=== PATIENT | male | born 1945 | race Two or more races ===

== ENCOUNTER 2018-09-02 02:48 | Emergency (ER) | payer OTHER ==
[~2018-09-02] VITALS: Ht 182.9 cm; Wt 88.5 kg
[2018-09-02 02:54] VITALS: BP 182/92
[2018-09-02] MEDS ORDERED: cloNIDine HCL 0.1 MG TAB ONE (03:04)
[2018-09-02] MEDS ORDERED: cloNIDine HCL 0.1 MG TAB PO ONE (03:15)
[2018-09-02 03:36] LABS: Basophils # (auto) 0 uL; Basophils % (auto) 0.2 % (0.0-2.0); Eosinophils # (auto) 0.5 uL; Eosinophils % (auto) 6.6 % (0.0-7.0); Hematocrit 39.8 % (41.0-53.0); Hemoglobin 13.6 g/dL (13.5-17.5); Lymphocytes # (auto) 2.3 uL; Lymphocytes % (auto) 33.6 % (10.0-50.0); Mean Corpuscular Hemoglobin 32.2 pg (28.0-32.0); Mean Corpuscular Hgb Conc. 34.1 g/dL (32.0-36.0); Mean Corpuscular Volume 94.4 fL (80.0-100.0); Monocytes # (auto) 0.5 uL; Neutrophils # (auto) 3.7 uL; Neutrophils % (auto) 52.6 % (37.0-80.0); Nucleated Red Blood Cells % 0.1 %; Platelet Count (auto) 269 10^3/uL (140-450); Red Blood Cells 4.22 10^6/uL (4.5-5.90); Red Cell Distribution Width 12.8 % (11.8-14.3)
[2018-09-02 03:55] LABS: Albumin 3.5 g/dL (3.4-5.0); Anion Gap 7 (5-15); Blood Urea Nitrogen 27 mg/dL (7-18); Calcium 8.4 mg/dL (8.5-10.1); Carbon Dioxide 23 mmol/L (21-32); Chloride 109 mmol/L (98-107); Glucose 106 mg/dL (74-106); Potassium 4.1 mmol/L (3.5-5.1); Sodium 139 mmol/L (136-145)
[2018-09-02 04:01] LABS: Alanine Aminotransferase 22 U/L (16-61); Alkaline Phosphatase 77 U/L (45-117); Aspartate Aminotransferase 17 U/L (15-37); BUN/Creatinine Ratio 22.3; Bilirubin, Total 0.2 mg/dL (0.2-1.0); GFR African American 76 mL/min; GFR Non-African American 62 mL/min; Total Protein 6.9 g/dL (6.4-8.2)
[2018-09-05] MEDS ORDERED: IBUP400T21 PO (08:58)
[2018-09-05] MEDS ORDERED: ATOR40TA52 PO (08:58)
[2018-09-05] MEDS ORDERED: HYDR-392 PO (08:58)
[2018-09-05] MEDS ORDERED: LISI-646 PO (08:58)
[2018-09-05] MEDS ORDERED: OME20GT PO (08:58)
[2018-09-05] MEDS ORDERED: CHOL20007 PO (08:58)
[2018-09-05] MEDS ORDERED: MULTCAP45 PO (08:59)
[2018-09-05] MEDS ORDERED: LUTE6TAB PO (08:59)
[2018-09-05] MEDS ORDERED: FERR27TA2 PO (08:59)
== END 2018-09-02 04:57 | disposition left against medical advice (07) ==
LOC: ER 02:48
DX: R07.89 Other chest pain (principal); M54.9 Dorsalgia, unspecified; R11.0 Nausea; Z53.21 Procedure and treatment not carried out due to patient leaving prior to being seen by health care provider
CPT/HCPCS: 36415; 71045; 71250; 74176; 80053; 83735; 84443; 84484; 85025; 93005

== ENCOUNTER 2018-09-04 17:49 | Inpatient (IN) | payer OTHER | END 2018-09-08 19:00 | disposition home or self-care (01) | LOC: TELE 09-05 02:56 → ER 17:49 → TELE-WESTW 09-05 21:28 | DX: R07.9 Chest pain, unspecified (principal) ==

== ENCOUNTER → 2018-10-05 | Outpatient (CLI) | payer OTHER ==
[~2018-10-05] MED LIST: ATOR40TA52 PO; HYDR-392 PO; IBUP400T21 PO; LISI-646 PO; OME20GT PO
== END | disposition home or self-care (01) ==
LOC: LAB 11:10
PROVIDERS: ATTEND Urology
DX: C61 Malignant neoplasm of prostate (principal); C67.9 Malignant neoplasm of bladder, unspecified; N40.0 Benign prostatic hyperplasia without lower urinary tract symptoms
CPT/HCPCS: 84153; 87086

== ENCOUNTER 2018-10-27 08:42 | Day surgery (SDC) | payer OTHER ==
[2018-10-24 09:18] LABS: Basophils # (auto) 0.1 uL; Eosinophils # (auto) 0.2 uL; Eosinophils % (auto) 2.9 % (0.0-7.0); Hematocrit 41.7 % (41.0-53.0); Hemoglobin 13.9 g/dL (13.5-17.5); Mean Corpuscular Hemoglobin 31.6 pg (28.0-32.0); Mean Corpuscular Hgb Conc. 33.2 g/dL (32.0-36.0); Monocytes # (auto) 0.5 uL; Monocytes % (auto) 7.4 % (0.0-12.0); Neutrophils % (auto) 58.7 % (37.0-80.0); Nucleated Red Blood Cells % 0.1 %; Platelet Count (auto) 299 10^3/uL (140-450); Red Blood Cells 4.39 10^6/uL (4.5-5.90); Red Cell Distribution Width 13.7 % (11.8-14.3); White Blood Cell 6.8 10^3/uL (4.4-10.8)
[2018-10-24 09:49] LABS: Albumin 3.8 g/dL (3.4-5.0); Calcium 8.7 mg/dL (8.5-10.1); Potassium 4.4 mmol/L (3.5-5.1)
[2018-10-24 09:52] LABS: BUN/Creatinine Ratio 12.7; Bilirubin, Total 0.6 mg/dL (0.2-1.0); Total Protein 7.4 g/dL (6.4-8.2)
[2018-10-24 10:11] LABS: INR 1.22 (0.9-1.15); Partial Thromboplastin Time 33.2 sec (23.78-33.04); Prothrombin Time 12.2 sec (9.27-12.13)
[~2018-10-27] VITALS: Ht 182.9 cm; Wt 86.2 kg
[~2018-10-27 08:42] MED LIST changes: +AMIO200T33 PO; +CLOP75TA41 PO; +DOCU100T15 PO; -IBUP400T21 PO; +LIDOCAINE VISCOUS 2% 15ML UD MT ONE; +MIDAZOLAM HCL 1MG/1ML-2 ML VIAL IV ONE; +RIV15T PO; +fentaNYL CITRATE 100 MCG/2 ML VL IV ONE
== END 2018-10-27 11:40 | disposition home or self-care (01) ==
LOC: CATH 08:42
PROVIDERS: ATTEND Internal Medicine
DX: I08.1 Rheumatic disorders of both mitral and tricuspid valves (principal); I48.91 Unspecified atrial fibrillation; I10 Essential (primary) hypertension; E78.5 Hyperlipidemia, unspecified; K21.9 Gastro-esophageal reflux disease without esophagitis; G89.29 Other chronic pain; Z79.01 Long term (current) use of anticoagulants; Z79.899 Other long term (current) drug therapy; Z85.46 Personal history of malignant neoplasm of prostate; Z91.048 Other nonmedicinal substance allergy status; Z87.891 Personal history of nicotine dependence; Z82.49 Family history of ischemic heart disease and other diseases of the circulatory system
CPT/HCPCS: 36415; 80053; 85025; 85610; 85730; 92960; 93005; 93312; J2250; J3010; J7030; 99152; 99153

== ENCOUNTER → 2018-11-09 | Outpatient (CLI) | payer OTHER ==
[~2018-11-09] MED LIST changes: -LIDOCAINE VISCOUS 2% 15ML UD MT ONE; -MIDAZOLAM HCL 1MG/1ML-2 ML VIAL IV ONE; -fentaNYL CITRATE 100 MCG/2 ML VL IV ONE
== END | disposition home or self-care (01) ==
LOC: LAB 13:34
PROVIDERS: ATTEND Urology
DX: C61 Malignant neoplasm of prostate (principal); C67.9 Malignant neoplasm of bladder, unspecified
CPT/HCPCS: 88108

== ENCOUNTER → 2019-02-19 | Outpatient (CLI) | payer OTHER ==
[2019-02-19 08:43] LABS: Basophils # (auto) 0.1 uL; Basophils % (auto) 1.2 % (0.0-2.0); Eosinophils # (auto) 0.1 uL; Eosinophils % (auto) 2.1 % (0.0-7.0); Hemoglobin 13.5 g/dL (13.5-17.5); Lymphocytes # (auto) 1.4 uL; Lymphocytes % (auto) 22.6 % (10.0-50.0); Mean Corpuscular Hemoglobin 31.8 pg (28.0-32.0); Mean Corpuscular Hgb Conc. 32.9 g/dL (32.0-36.0); Mean Corpuscular Volume 96.6 fL (80.0-100.0); Monocytes # (auto) 0.4 uL; Monocytes % (auto) 6.8 % (0.0-12.0); Neutrophils # (auto) 4.3 uL; Neutrophils % (auto) 67.3 % (37.0-80.0); Nucleated Red Blood Cells % 0.1 %; Platelet Count (auto) 288 10^3/uL (140-450); Red Blood Cells 4.24 10^6/uL (4.5-5.90); Red Cell Distribution Width 13.2 % (11.8-14.3); White Blood Cell 6.4 10^3/uL (4.4-10.8)
[2019-02-19 09:08] LABS: Albumin 3.6 g/dL (3.4-5.0); Calcium 9.1 mg/dL (8.5-10.1); Potassium 4.2 mmol/L (3.5-5.1)
[2019-02-19 09:13] LABS: BUN/Creatinine Ratio 17.1; Bilirubin, Total 0.4 mg/dL (0.2-1.0); Total Protein 7.3 g/dL (6.4-8.2)
== END | disposition home or self-care (01) ==
LOC: LAB 08:21
PROVIDERS: ATTEND Internal Medicine
DX: I48.0 Paroxysmal atrial fibrillation (principal); E78.49 Other hyperlipidemia; I10 Essential (primary) hypertension
CPT/HCPCS: 36415; 80053; 80061; 85025

== ENCOUNTER → 2019-04-11 | Outpatient (CLI) | payer OTHER ==
[~2019-04-11] VITALS: Ht 182.9 cm; Wt 86.2 kg
[~2019-04-11] MED LIST changes: +ADENOSINE 72 MG in GIVE UN-DILUTED 0 ML IV STA
== END | disposition home or self-care (01) ==
LOC: XY 08:57
PROVIDERS: ATTEND Internal Medicine
DX: R07.9 Chest pain, unspecified (principal); I49.3 Ventricular premature depolarization; I48.91 Unspecified atrial fibrillation; I71.4 Abdominal aortic aneurysm, without rupture; Z86.79 Personal history of other diseases of the circulatory system; Z95.5 Presence of coronary angioplasty implant and graft
CPT/HCPCS: 78452; 93017; A9500; J0153

== ENCOUNTER → 2019-04-19 | Outpatient (CLI) | payer OTHER ==
[~2019-04-19] MED LIST changes: -ADENOSINE 72 MG in GIVE UN-DILUTED 0 ML IV STA
== END | disposition home or self-care (01) ==
LOC: XYW 09:34
PROVIDERS: ATTEND Internal Medicine
DX: I07.1 Rheumatic tricuspid insufficiency (principal); I49.3 Ventricular premature depolarization
CPT/HCPCS: 93306

== ENCOUNTER → 2019-06-04 | Outpatient (CLI) | payer OTHER ==
[~2019-06-04] MED LIST changes: +OME20T PO
[2019-06-04 13:04] LABS: Basophils # (auto) 0.1 uL; Basophils % (auto) 0.9 % (0.0-2.0); Eosinophils # (auto) 0.1 uL; Eosinophils % (auto) 2.2 % (0.0-7.0); Hematocrit 39.3 % (41.0-53.0); Hemoglobin 13.2 g/dL (13.5-17.5); Lymphocytes # (auto) 1.6 uL; Lymphocytes % (auto) 23.6 % (10.0-50.0); Mean Corpuscular Hemoglobin 32.4 pg (28.0-32.0); Mean Corpuscular Hgb Conc. 33.6 g/dL (32.0-36.0); Mean Corpuscular Volume 96.3 fL (80.0-100.0); Monocytes # (auto) 0.5 uL; Monocytes % (auto) 6.9 % (0.0-12.0); Neutrophils # (auto) 4.4 uL; Neutrophils % (auto) 66.4 % (37.0-80.0); Nucleated Red Blood Cells % 0.1 %; Platelet Count (auto) 283 10^3/uL (140-450); Red Blood Cells 4.08 10^6/uL (4.5-5.90); Red Cell Distribution Width 12.6 % (11.8-14.3); White Blood Cell 6.6 10^3/uL (4.4-10.8)
[2019-06-04 13:28] LABS: Albumin 3.8 g/dL (3.4-5.0); Calcium 8.5 mg/dL (8.5-10.1); Potassium 4.4 mmol/L (3.5-5.1)
[2019-06-04 13:31] LABS: BUN/Creatinine Ratio 13.7; Bilirubin, Total 0.3 mg/dL (0.2-1.0); Total Protein 7.6 g/dL (6.4-8.2)
[2019-06-04 14:39] LABS: INR 1.24 (0.9-1.15); Partial Thromboplastin Time 32.2 sec (23.64-32.05)
== END | disposition home or self-care (01) ==
LOC: LAB 12:46
PROVIDERS: ATTEND Internal Medicine
DX: Z01.812 Encounter for preprocedural laboratory examination (principal); R07.89 Other chest pain
CPT/HCPCS: 36415; 80053; 85025; 85610; 85730

== ENCOUNTER 2019-06-06 08:01 | Day surgery (SDC) | payer OTHER ==
[~2019-06-06] VITALS: Ht 182.9 cm; Wt 88.5 kg
[~2019-06-06 08:01] MED LIST changes: +IODIXANOL 320MG/ML 100ML BTL IV ONE; +LIDOCAINE 2%HCL (LOCAL ANESTH.) INJ 20ML MDV ONE; -OME20T PO
[2019-06-06] MEDS ORDERED: MIDAZOLAM HCL 1MG/1ML-2 ML VIAL ONE (09:04)
[2019-06-06] MEDS ORDERED: ANGIOMAX 250 MG VIAL IV ONE (09:04)
[2019-06-06] MEDS ORDERED: SODIUM CHL 0.9% 50 ML ONE (09:04)
[2019-06-06] MEDS ORDERED: fentaNYL CITRATE 100 MCG/2 ML VL ONE (09:04)
[2019-06-06] MEDS ORDERED: IODIXANOL 320MG/ML 100ML BTL IV ONE (09:16)
[2019-06-06] MEDS ORDERED: HEPARIN SODIUM (PORCINE) 5000 UNITS/ML 1ML VIAL ONE (09:17)
[2019-06-06] MEDS ORDERED: VERAPAMIL 2.5MG/ML INJ 2ML VIAL IV ONE (09:17)
[2019-06-06] MEDS ORDERED: ATROPINE SULF 1 MG/10ml SYR ONE (09:56)
[2019-06-06] MEDS ORDERED: SODIUM CHLORIDE 0.9% 1,000 ML IV SCH (10:23)
[2019-06-06] MEDS ORDERED: OME20T PO (10:28)
[2019-06-06] MEDS ORDERED: ONDANSETRON HCL 4 MG/2 ML VIAL IV PRN (10:30)
[2019-06-06] MEDS ORDERED: HYDROcodone-ACET 7.5/325MG TAB PO PRN (10:30)
[2019-06-06] MEDS ORDERED: MORPHINE SULF INJ 2 MG/ML SYRINGE 1ML IV PRN (10:30)
[2019-06-06] MEDS ORDERED: NITROGLYCERIN 0.4 MG SL TAB SL PRN (10:30)
[2019-06-06] MEDS ORDERED: ACETAMINOPHEN 500 MG TAB PO PRN (10:30)
[2019-06-06] MEDS ORDERED: PATIENTS OWN MEDICATION (Docusate Sodium 100 MG) PO PRN (10:30)
[2019-06-06] MEDS ORDERED: DOCUSATE SOD 100 MG CAP PO PRN (10:45)
[2019-06-06] MEDS ORDERED: SODIUM CHLOR 0.9% PF (SALINE LOCK) 10ML VIAL/SYR IV SCH (14:00)
[2019-06-06] MEDS ORDERED: ATORVASTATIN 20 MG TAB PO SCH (22:00)
[2019-06-06] MEDS ORDERED: AMIODARONE HCL 200 MG TAB PO SCH (22:00)
[2019-06-07] MEDS ORDERED: RIVAROXABAN 15 MG TAB PO SCH (10:00)
[2019-06-07] MEDS ORDERED: CLOPIDOGREL BISULFATE 75 MG TAB PO SCH (10:00)
[2019-06-07] MEDS ORDERED: OMEPRAZOLE 20MG/10ML ORAL SUSP PO SCH (10:00)
[2019-06-07] MEDS ORDERED: LISINOPRIL 20 MG TAB PO SCH (10:00)
[2019-06-07] MEDS ORDERED: PATIENTS OWN MEDICATION (Atorvastatin Calcium 1 TAB) PO SCH (10:00)
== END 2019-06-06 14:15 | disposition home or self-care (01) ==
LOC: CATH 08:01
PROVIDERS: ATTEND Internal Medicine
DX: I25.10 Atherosclerotic heart disease of native coronary artery without angina pectoris (principal); I10 Essential (primary) hypertension; E78.5 Hyperlipidemia, unspecified; I48.91 Unspecified atrial fibrillation; Z95.5 Presence of coronary angioplasty implant and graft; Z91.040 Latex allergy status; Z87.891 Personal history of nicotine dependence; Z85.46 Personal history of malignant neoplasm of prostate; Z79.899 Other long term (current) drug therapy
CPT/HCPCS: 93458; 93571; C1725; C1769; C1874; C1887; C1894; C9600; J0583; J1644; J2250; J3010; J7030; Q9967; 99152; 99153

== ENCOUNTER → 2019-12-11 | Outpatient (CLI) | payer OTHER ==
[~2019-12-11] MED LIST changes: +HYDR-4833 PO; -IODIXANOL 320MG/ML 100ML BTL IV ONE; -LIDOCAINE 2%HCL (LOCAL ANESTH.) INJ 20ML MDV ONE; -OME20GT PO; +OME20T PO; +PANT1INJ3 PO; +SUCR1TAB PO
== END | disposition home or self-care (01) ==
LOC: LAB 10:42
PROVIDERS: ATTEND Urology
DX: C61 Malignant neoplasm of prostate (principal); C67.9 Malignant neoplasm of bladder, unspecified; N40.1 Benign prostatic hyperplasia with lower urinary tract symptoms; R33.9 Retention of urine, unspecified
CPT/HCPCS: 84153

== ENCOUNTER → 2019-12-17 | Outpatient (CLI) | payer OTHER ==
[~2019-12-17] MED LIST changes: -HYDR-4833 PO; -PANT1INJ3 PO; -SUCR1TAB PO
== END | disposition home or self-care (01) ==
LOC: LAB 15:00
PROVIDERS: ATTEND Urology
DX: N32.89 Other specified disorders of bladder (principal); Z85.51 Personal history of malignant neoplasm of bladder

== ENCOUNTER → 2020-02-06 | Outpatient (CLI) | payer OTHER | END | disposition home or self-care (01) | LOC: LAB 11:01 | PROVIDERS: ATTEND Internal Medicine Cardiovascular Disease | DX: R94.4 Abnormal results of kidney function studies (principal) | CPT/HCPCS: 36415; 82565 ==

== ENCOUNTER → 2020-02-08 | Outpatient (CLI) | payer OTHER ==
[~2020-02-08] MED LIST changes: +HYDR-4833 PO; +IOHEXOL 350 MG/ML 100ML IJ ONE; +PANT1INJ3 PO; +SODIUM CHLORIDE 0.9% 500 ML IV ONE; +SUCR1TAB PO
[2020-02-08 08:40] VITALS: BP 109/56
--- NOTE | 2020-02-08 08:40 | NUR ---
CLINIC PT ARRIVED TO THE CHF CLINIC FOR CTA ABD/PEL WITH ORDERS FOR IV HYDRATION PRIOR TO CT. A/OX4, AMBULATORY. BREATHING IS EVEN AND UNLABORED.
--- NOTE | 2020-02-08 08:52 | NUR ---
NS STARTED @ 250ML/HR PER MD ORDERS.
--- NOTE | 2020-02-08 09:22 | NUR ---
IV insertion IV access obtained, via clean sterile technique by inserting 20 gauge catheter at RFA after 1 attempt(s). IV secured properly. No trauma to site. Patient tolerated procedure well. LABS DRAWN AND SENT. NOTE INSERTED BY DELONTE GONZALES Addendum: 02/08/20 at 0924 by THOMAS ZHANG RN RN PA IV INSERTED AT 0849
--- NOTE | 2020-02-08 10:25 | NUR ---
TO CT WITH [employer], A/OX4, AMBULATORY
--- NOTE | 2020-02-08 10:35 | NUR ---
RETURN FROM CT A/OX4, AMBULATORY. RESTARTED TO NS PER MD ORDERS
--- NOTE | 2020-02-08 12:17 | NUR ---
IV removal IV DC'd with sterile technique, catheter fully intact. Pressure dressing applied to site. Patient tolerated procedure well. Discharged with aftercare instructions per MD. NOTE: REMOVED BY DELONTE GONZALES
[2020-02-08 12:19] VITALS: BP 136/66
--- NOTE | 2020-02-08 12:19 | NUR ---
Discharge Instructions See e-MAR for any mediations given with this visit. Patient education given on disease process. Patient verbalized understanding. Previous labs reviewed. Patient discharged in stable condition with after care instructions and follow up appointment. PT ADVISED TO INCREASE WATER INTAKE FOR THE NEXT 24 HOURS. NOTE NS IV [id number] ADMIN BY THOMAS GONZALES
[2020-02-08 12:20] VITALS: BP 109/56
== END | disposition home or self-care (01) ==
LOC: Rad HDHVI 08:29
PROVIDERS: ATTEND Internal Medicine Cardiovascular Disease
DX: E86.0 Dehydration (principal); R94.4 Abnormal results of kidney function studies; I25.10 Atherosclerotic heart disease of native coronary artery without angina pectoris; I10 Essential (primary) hypertension; E78.5 Hyperlipidemia, unspecified
CPT/HCPCS: 36415; 74175; 82565; 96360; 96361; G0463; J7040; Q9967; 96366

== ENCOUNTER → 2020-02-20 | Outpatient (CLI) | payer OTHER ==
[~2020-02-20] MED LIST changes: -HYDR-4833 PO; -IOHEXOL 350 MG/ML 100ML IJ ONE; -PANT1INJ3 PO; -SODIUM CHLORIDE 0.9% 500 ML IV ONE; -SUCR1TAB PO
[2020-02-20 10:34] LABS: Basophils # (auto) 0.1 10 ^3/uL (0-0.2); Basophils % (auto) 0.9 % (0.0-2.0); Eosinophils # (auto) 0.2 10 ^3/uL (0-0.8); Eosinophils % (auto) 2.5 % (0.0-7.0); Hematocrit 38.3 % (41.0-53.0); Hemoglobin 12.8 g/dL (13.5-17.5); Lymphocytes # (auto) 1.4 10 ^3/uL (0.4-5.4); Lymphocytes % (auto) 21.6 % (10.0-50.0); Mean Corpuscular Hemoglobin 32.1 pg (28.0-32.0); Mean Corpuscular Hgb Conc. 33.6 g/dL (32.0-36.0); Mean Corpuscular Volume 95.5 fL (80.0-100.0); Monocytes # (auto) 0.5 10 ^3/uL (0-1.3); Monocytes % (auto) 7.8 % (0.0-12.0); Neutrophils # (auto) 4.3 10 ^3/uL (1.6-8.6); Neutrophils % (auto) 67.2 % (37.0-80.0); Nucleated Red Blood Cells % 0.2 %; Platelet Count (auto) 317 10^3/uL (140-450); Red Blood Cells 4.01 10^6/uL (4.5-5.90); Red Cell Distribution Width 13.5 % (11.8-14.3); White Blood Cell 6.4 10^3/uL (4.4-10.8)
[2020-02-20 10:51] LABS: Albumin 3.5 g/dL (3.4-5.0); Potassium 4.4 mmol/L (3.5-5.1)
[2020-02-20 10:58] LABS: BUN/Creatinine Ratio 16.1; Bilirubin, Total 0.4 mg/dL (0.2-1.0); Calcium 8.8 mg/dL (8.5-10.1); Total Protein 7.1 g/dL (6.4-8.2)
== END | disposition home or self-care (01) ==
LOC: LAB 09:46
PROVIDERS: ATTEND Family Medicine
DX: I10 Essential (primary) hypertension (principal); I25.10 Atherosclerotic heart disease of native coronary artery without angina pectoris; E78.5 Hyperlipidemia, unspecified
CPT/HCPCS: 36415; 80053; 80061; 85025

== ENCOUNTER → 2020-03-06 | Outpatient (CLI) | payer OTHER ==
[~2020-03-06] MED LIST changes: +HYDR-4833 PO; +PANT1INJ3 PO; +SUCR1TAB PO
[2020-03-06 11:15] VITALS: BP 91/47
--- NOTE | 2020-03-06 11:15 | NUR ---
CLINIC PT ARRIVED TO THE CHF CLINIC FOR EKG ONLY FOR PRE OP FOR AAA WITH MD SIDHU. A/OX4, AMBULATORY, BREATHING IS EVEN AND UNLABORED.
--- NOTE | 2020-03-06 11:23 | NUR ---
EKG DONE BY KAI SOLIZ REVIEWED BY THOMAS GONZALES SR 50
[2020-03-06 11:35] VITALS: BP 95/55
--- NOTE | 2020-03-06 11:35 | NUR ---
Pre-Op Discharge Summary: See e-MAR for any medications given for this visit. Pre-op orders received and carried out per MD of EKG. Patient given a copy of EKG with instructions [facility] for further follow up care. PT GIVEN A PRESCRIPTION FOR LABS AND CXR TO BE DONE AT HOSPITAL. NOTE EKG DONE BY KAI SOLIZ
== END | disposition home or self-care (01) ==
LOC: CHF HDHVI 11:04
PROVIDERS: ATTEND Internal Medicine Cardiovascular Disease
DX: Z01.818 Encounter for other preprocedural examination (principal); I71.4 Abdominal aortic aneurysm, without rupture
CPT/HCPCS: 93005; G0463

== ENCOUNTER 2020-03-13 08:34 | Inpatient (IN) | payer OTHER ==
[2020-03-11 09:29] LABS: Basophils # (auto) 0.1 10 ^3/uL (0-0.2); Basophils % (auto) 0.8 % (0.0-2.0); Eosinophils # (auto) 0.1 10 ^3/uL (0-0.8); Eosinophils % (auto) 1.6 % (0.0-7.0); Hematocrit 36.5 % (41.0-53.0); Hemoglobin 12.4 g/dL (13.5-17.5); Lymphocytes # (auto) 1.4 10 ^3/uL (0.4-5.4); Lymphocytes % (auto) 19.5 % (10.0-50.0); Mean Corpuscular Hemoglobin 32.3 pg (28.0-32.0); Mean Corpuscular Volume 94.9 fL (80.0-100.0); Monocytes # (auto) 0.4 10 ^3/uL (0-1.3); Monocytes % (auto) 6.1 % (0.0-12.0); Neutrophils # (auto) 5.2 10 ^3/uL (1.6-8.6); Platelet Count (auto) 238 10^3/uL (140-450); Red Blood Cells 3.85 10^6/uL (4.5-5.90); Red Cell Distribution Width 13.4 % (11.8-14.3); White Blood Cell 7.3 10^3/uL (4.4-10.8)
[2020-03-11 09:49] LABS: BUN/Creatinine Ratio 12.2; Calcium 8.4 mg/dL (8.5-10.1); INR 1.01 (0.9-1.15); Partial Thromboplastin Time 26.4 sec (23.0-31.2)
[~2020-03-13] VITALS: Ht 182.9 cm; Wt 46.9 kg
[~2020-03-13 08:34] MED LIST changes: -HYDR-392 PO; -OME20T PO
[2020-03-13] MEDS ORDERED: LIDOCAINE 2%HCL (LOCAL ANESTH.) INJ 20ML MDV ONE ×2 (09:12→09:57)
[2020-03-13] MEDS ORDERED: DOPamine 1600MCG/ML D5W 0 ML IV ONE (09:45)
[2020-03-13] MEDS ORDERED: ANGIOMAX 250 MG VIAL IV ONE ×2 (09:45→11:04)
[2020-03-13] MEDS ORDERED: fentaNYL CITRATE 100 MCG/2 ML VL ONE ×2 (09:45→09:57)
[2020-03-13] MEDS ORDERED: SODIUM CHL 0.9% 0 ML ONE (09:45)
[2020-03-13] MEDS ORDERED: ATROPINE SULF 1 MG/10ml SYR ONE (09:45)
[2020-03-13] MEDS ORDERED: MIDAZOLAM HCL 1MG/1ML-2 ML VIAL ONE ×4 (09:45→11:28)
[2020-03-13] MEDS ORDERED: EPINEPHrine HCL 1 MG/10 ML SYRG ONE (09:47)
[2020-03-13] MEDS ORDERED: PHENYLEPHRINE HCL 10 MG/ML VL ONE (09:56)
[2020-03-13] MEDS ORDERED: IOHEXOL 350 MG/ML 100ML IJ ONE ×2 (09:59→10:46)
[2020-03-13] MEDS ORDERED: SODIUM CHL 0.9% 50 ML ONE (11:05)
[2020-03-13] MEDS ORDERED: NITROGLYCERIN 0.4 MG SL TAB SL PRN (12:15)
[2020-03-13] MEDS ORDERED: ACETAMINOPHEN 500 MG TAB PO PRN (12:15)
[2020-03-13] MEDS ORDERED: MORPHINE SULF INJ 2 MG/ML SYRINGE 1ML IV PRN (12:15)
[2020-03-13] MEDS: HYDROmorphone HCL 2 MG/ML VL IV PRN ×2 (12:28→16:34)
[2020-03-13] MEDS ORDERED: DOCUSATE SOD 100 MG CAP PO PRN (12:30)
[2020-03-13 15:23] VITALS: BP 164/70
[2020-03-13] MEDS ORDERED: cloNIDine HCL 0.1 MG TAB PO PRN (15:30)
[2020-03-13] MEDS: SUCRALFATE 1 GM TAB PO SCH ×2 (17:18→23:54)
[2020-03-13] MEDS: HYDROcodone-ACET 5/325MG TAB PO PRN (18:01)
[2020-03-13 22:00] VITALS: BP 88/45
[2020-03-13] MEDS ORDERED: SODIUM CHLORIDE 0.9% 500 ML IV ONE (22:00)
[2020-03-13] MEDS: AMIODARONE HCL 200 MG TAB PO SCH (22:00)
[2020-03-13] MEDS ORDERED: PANTOPRAZOLE 40 MG TAB PO SCH (22:00)
[2020-03-13] MEDS ORDERED: ATORVASTATIN 20 MG TAB PO SCH (22:00)
[2020-03-14 05:16] VITALS: BP 93/53
[2020-03-14] MEDS: SUCRALFATE 1 GM TAB PO SCH ×2 (06:18→11:46)
[2020-03-14 09:00] VITALS: BP 103/58
[2020-03-14] MEDS: AMIODARONE HCL 200 MG TAB PO SCH (09:18)
[2020-03-14] MEDS ORDERED: PANTOPRAZOLE 40 MG TAB PO SCH (10:00)
[2020-03-14] MEDS ORDERED: LISINOPRIL 20 MG TAB PO SCH (10:00)
[2020-03-14] MEDS ORDERED: RIVAROXABAN 15 MG TAB PO SCH (10:00)
[2020-03-14] MEDS: HYDROcodone-ACET 5/325MG TAB PO PRN (11:46)
[2020-03-14 13:00] VITALS: BP 109/73
[2020-03-14 16:01] VITALS: BP 103/58
[2020-03-14 17:00] VITALS: BP 117/60
== END 2020-03-14 18:00 | disposition home or self-care (01) | DRG 269 ==
LOC: CATH 08:34 → TELE-WESTW 13:31
PROVIDERS: ADMIT Internal Medicine Cardiovascular Disease; ATTEND Internal Medicine Cardiovascular Disease
PROC: 04V03DZ Restriction of Abdominal Aorta with Intraluminal Device, Percutaneous Approach (ICD-10-PCS; principal; 2020-03-13)
PROC: 4A023N7 Measurement of Cardiac Sampling and Pressure, Left Heart, Percutaneous Approach (ICD-10-PCS; 2020-03-13)
PROC: B2111ZZ Fluoroscopy of Multiple Coronary Arteries using Low Osmolar Contrast (ICD-10-PCS; 2020-03-13)
PROC: B2151ZZ Fluoroscopy of Left Heart using Low Osmolar Contrast (ICD-10-PCS; 2020-03-13)
PROC: B4101ZZ Fluoroscopy of Abdominal Aorta using Low Osmolar Contrast (ICD-10-PCS; 2020-03-13)
DX: I71.4 Abdominal aortic aneurysm, without rupture (principal); I25.10 Atherosclerotic heart disease of native coronary artery without angina pectoris; E78.5 Hyperlipidemia, unspecified; I10 Essential (primary) hypertension; N28.9 Disorder of kidney and ureter, unspecified; Z20.828 Contact with and (suspected) exposure to other viral communicable diseases; Z86.79 Personal history of other diseases of the circulatory system; Z91.040 Latex allergy status
CPT/HCPCS: 36415; 80048; 82565; 85025; 85610; 85730; 86850; 86900; 86901; 86920; 99152; 99153; G0378; J2250

== ENCOUNTER → 2020-05-14 | Outpatient (CLI) | payer OTHER | END | disposition home or self-care (01) | LOC: LAB 09:42 | PROVIDERS: ATTEND Internal Medicine Cardiovascular Disease | DX: R94.4 Abnormal results of kidney function studies (principal) | CPT/HCPCS: 36415; 82565; 84520 ==

== ENCOUNTER → 2020-05-16 | Outpatient (CLI) | payer OTHER ==
[~2020-05-16] VITALS: Ht 30.5 cm; Wt 86.2 kg
[~2020-05-16] MED LIST changes: +IOHEXOL 350 MG/ML 100ML IJ ONE; +SODIUM CHLORIDE 0.9% 250 ML IV ONE
[2020-05-16 09:50] VITALS: BP 138/72
--- NOTE | 2020-05-16 09:50 | NUR ---
CLINIC PT ARRIVED TO THE CLINIC WITH ORDERS FOR CT AORTA WITH IV CONTRAST RE AAA. A/OX4, AMBULATORY WITH CANE, BREATHING IS EVEN AND UNLABORED. PT CREAT LEVEL DRAWN ON 05/14/20 1.49.
--- NOTE | 2020-05-16 09:59 | NUR ---
IV insertion IV access obtained, via clean sterile technique by inserting 20 gauge catheter at RAC after 1 attempt(s). IV secured properly. No trauma to site. Patient tolerated procedure well. NOTE INSERTED BY THOMAS GONZALES
--- NOTE | 2020-05-16 10:39 | NUR ---
IV removal IV DC'd with sterile technique, catheter fully intact. Pressure dressing applied to site. Patient tolerated procedure well. Discharged with aftercare instructions per MD. NOTE: REMOVED BY THOMAS GONZALES
[2020-05-16 10:40] VITALS: BP 134/61
--- NOTE | 2020-05-16 10:40 | NUR ---
Discharge Instructions See e-MAR for any mediations given with this visit. Patient education given on disease process. Patient verbalized understanding. Previous labs reviewed. Patient discharged in stable condition with after care instructions and follow up appointment. PT ADVISED TO INCREASE FLUIDS FOR THE NEXT 24 TO 48 HOURS. NOTE NS IV [id number] ADMIN BY THOMAS GONZALES
== END | disposition home or self-care (01) ==
LOC: Rad HDHVI 09:36
PROVIDERS: ATTEND Internal Medicine Cardiovascular Disease
DX: E86.0 Dehydration (principal); I71.4 Abdominal aortic aneurysm, without rupture; R94.4 Abnormal results of kidney function studies
CPT/HCPCS: 96360; G0463; Q9967

== ENCOUNTER → 2020-10-27 | Outpatient (CLI) | payer OTHER ==
[~2020-10-27] MED LIST changes: -CLOP75TA41 PO; +CLOP75TA70 PO; -IOHEXOL 350 MG/ML 100ML IJ ONE; -SODIUM CHLORIDE 0.9% 250 ML IV ONE
== END | disposition home or self-care (01) ==
LOC: LAB 08:32
PROVIDERS: ATTEND Urology
DX: R97.20 Elevated prostate specific antigen [PSA] (principal)
CPT/HCPCS: 84154

== ENCOUNTER → 2021-05-06 | Day surgery (SDC) | payer OTHER ==
[2021-05-04 10:22] LABS: Basophils # (auto) 0.1 10 ^3/uL (0-0.2); Basophils % (auto) 0.9 % (0.0-2.0); Eosinophils # (auto) 0.3 10 ^3/uL (0-0.8); Eosinophils % (auto) 4.2 % (0.0-7.0); Hematocrit 38.7 % (41.0-53.0); Lymphocytes # (auto) 2.2 10 ^3/uL (0.4-5.4); Lymphocytes % (auto) 29.4 % (10.0-50.0); Mean Corpuscular Hemoglobin 31.8 pg (28.0-32.0); Mean Corpuscular Hgb Conc. 33.5 g/dL (32.0-36.0); Mean Corpuscular Volume 94.7 fL (80.0-100.0); Monocytes # (auto) 0.4 10 ^3/uL (0-1.3); Monocytes % (auto) 5.9 % (0.0-12.0); Neutrophils # (auto) 4.5 10 ^3/uL (1.6-8.6); Neutrophils % (auto) 59.6 % (37.0-80.0); Red Blood Cells 4.09 10^6/uL (4.5-5.90); Red Cell Distribution Width 12.7 % (11.8-14.3); White Blood Cell 7.5 10^3/uL (4.4-10.8)
[2021-05-04 10:38] LABS: INR 0.98 (0.9-1.15); Partial Thromboplastin Time 26.3 sec (23.6-33.0)
[2021-05-04 11:30] LABS: Potassium 4.4 mmol/L (3.5-5.1)
[2021-05-04 11:31] LABS: Albumin 3.3 g/dL (3.4-5.0); Bilirubin, Total 0.3 mg/dL (0.2-1.0); Calcium 8.5 mg/dL (8.5-10.1)
[~2021-05-06] MED LIST changes: +CETI1TAB36 PO; +LIDOCAINE VISCOUS 2% 15ML UD ONE; -LISI-646 PO; +LISI20TA28 PO; +MULT-1018 PO; +SODIUM CHLORIDE LOCK 10 ML ONE
[2021-05-06] MEDS: fentaNYL CITRATE 100 MCG/2 ML VL ONE ×2 (13:30→13:33)
[2021-05-06] MEDS: MIDAZOLAM HCL 5 MG/ML-1ML VIAL ONE ×3 (13:30→13:36)
[2021-05-06] MEDS: diphenhdrAMINE HCL 50 MG/1 ML VL ONE ×2 (13:30→13:33)
[2021-05-06 14:30] VITALS: BP 131/68
== END | disposition home or self-care (01) ==
LOC: GI 11:54
PROVIDERS: ATTEND Internal Medicine Gastroenterology
DX: R13.10 Dysphagia, unspecified (principal); K29.50 Unspecified chronic gastritis without bleeding; K31.89 Other diseases of stomach and duodenum; K44.9 Diaphragmatic hernia without obstruction or gangrene; K21.9 Gastro-esophageal reflux disease without esophagitis; I72.9 Aneurysm of unspecified site; I10 Essential (primary) hypertension; I49.9 Cardiac arrhythmia, unspecified; Z98.890 Other specified postprocedural states; Z91.040 Latex allergy status; Z85.46 Personal history of malignant neoplasm of prostate; Z20.822 Contact with and (suspected) exposure to COVID-19
CPT/HCPCS: 36415; 43239; 80053; 85025; 85610; 85730; J1200; J2250; J3010; J7030; U0003; 99152

== ENCOUNTER → 2021-05-08 | Outpatient (CLI) | payer OTHER ==
[~2021-05-08] MED LIST changes: -LIDOCAINE VISCOUS 2% 15ML UD ONE; -SODIUM CHLORIDE LOCK 10 ML ONE
== END | disposition home or self-care (01) ==
LOC: LAB 09:30
PROVIDERS: ATTEND Family Medicine
DX: L57.0 Actinic keratosis (principal)
CPT/HCPCS: 88302

== ENCOUNTER → 2021-07-06 | Outpatient (CLI) | payer OTHER, MEDICARE ==
[2021-07-06 08:32] LABS: Basophils # (auto) 0.1 10 ^3/uL (0-0.2); Hematocrit 40.7 % (41.0-53.0); Mean Corpuscular Volume 94.3 fL (80.0-100.0); Monocytes # (auto) 0.4 10 ^3/uL (0-1.3); Red Blood Cells 4.32 10^6/uL (4.5-5.90); White Blood Cell 7.2 10^3/uL (4.4-10.8)
[2021-07-06 08:37] LABS: Basophils % (auto) 1.1 % (0.0-2.0); Eosinophils # (auto) 0.3 10 ^3/uL (0-0.8); Eosinophils % (auto) 4.7 % (0.0-7.0); Hemoglobin 13.6 g/dL (13.5-17.5); Lymphocytes # (auto) 2.4 10 ^3/uL (0.4-5.4); Lymphocytes % (auto) 32.8 % (10.0-50.0); Mean Corpuscular Hemoglobin 31.5 pg (28.0-32.0); Mean Corpuscular Hgb Conc. 33.4 g/dL (32.0-36.0); Neutrophils % (auto) 55.4 % (37.0-80.0); Red Cell Distribution Width 12.9 % (11.8-14.3)
[2021-07-06 09:05] LABS: Albumin 3.5 g/dL (3.4-5.0); Calcium 8.8 mg/dL (8.5-10.1); Potassium 4.2 mmol/L (3.5-5.1)
[2021-07-06 09:09] LABS: BUN/Creatinine Ratio 15.1; Bilirubin, Total 0.3 mg/dL (0.2-1.0); Total Protein 6.8 g/dL (6.4-8.2)
== END | disposition home or self-care (01) ==
LOC: LAB 08:11
PROVIDERS: ATTEND Family Medicine
DX: I11.0 Hypertensive heart disease with heart failure (principal); I50.42 Chronic combined systolic (congestive) and diastolic (congestive) heart failure; I48.0 Paroxysmal atrial fibrillation; I25.10 Atherosclerotic heart disease of native coronary artery without angina pectoris; E78.49 Other hyperlipidemia
CPT/HCPCS: 36415; 80053; 80061; 82607; 83036; 84443; 85025

== ENCOUNTER → 2021-07-07 | Outpatient (CLI) | payer OTHER | END | disposition home or self-care (01) | LOC: XY 09:06 | PROVIDERS: ATTEND Family Medicine | DX: I65.21 Occlusion and stenosis of right carotid artery (principal); I77.89 Other specified disorders of arteries and arterioles; R41.0 Disorientation, unspecified | CPT/HCPCS: 93886 ==

== ENCOUNTER → 2021-09-11 | Day surgery (SDC) | payer OTHER ==
[2021-09-08 09:29] LABS: Urine WBC None Seen /hpf (0 - 3)
[2021-09-08 09:42] LABS: Urine Bacteria NONE SEEN /hpf (None Seen); Urine Blood Negative /uL (Negative); Urine Specific Gravity 1.009 (1.001-1.035)
[2021-09-08 09:59] LABS: Basophils # (auto) 0.1 10 ^3/uL (0-0.2); Basophils % (auto) 0.9 % (0.0-2.0); Eosinophils # (auto) 0.4 10 ^3/uL (0-0.8); Eosinophils % (auto) 5.8 % (0.0-7.0); Hematocrit 37.9 % (41.0-53.0); Hemoglobin 12.7 g/dL (13.5-17.5); Lymphocytes # (auto) 1.8 10 ^3/uL (0.4-5.4); Lymphocytes % (auto) 28.7 % (10.0-50.0); Mean Corpuscular Hemoglobin 31.9 pg (28.0-32.0); Mean Corpuscular Hgb Conc. 33.5 g/dL (32.0-36.0); Mean Corpuscular Volume 95.2 fL (80.0-100.0); Monocytes # (auto) 0.4 10 ^3/uL (0-1.3); Monocytes % (auto) 6.7 % (0.0-12.0); Neutrophils # (auto) 3.6 10 ^3/uL (1.6-8.6); Neutrophils % (auto) 57.9 % (37.0-80.0); Nucleated Red Blood Cells % 0.1 %; Red Blood Cells 3.98 10^6/uL (4.5-5.90); Red Cell Distribution Width 13.1 % (11.8-14.3); White Blood Cell 6.3 10^3/uL (4.4-10.8)
[2021-09-08 10:14] LABS: INR 0.98 (0.9-1.15); Partial Thromboplastin Time 26.9 sec (23.6-33.0)
[2021-09-08 10:35] LABS: Albumin 3.4 g/dL (3.4-5.0); BUN/Creatinine Ratio 15.9; Bilirubin, Total 0.4 mg/dL (0.2-1.0); Calcium 8.6 mg/dL (8.5-10.1); Total Protein 7.1 g/dL (6.4-8.2)
[2021-09-08 13:10] LABS: Potassium 4.3 mmol/L (3.5-5.1)
[~2021-09-11] VITALS: Ht 185.4 cm; Wt 90.7 kg
[~2021-09-11] MED LIST changes: -CLOP75TA70 PO; +HYDROmorphone HCL 2 MG/ML VL IV PRN; +KETAMINE 50mg/ML 10ml Vial (500mg/10ml) IV ONE; +LIDOCAINE 2% (LOCAL ANESTH.) PF 5ml SDV ONE; +LIDOCAINE VISCOUS 2% 15ML UD ONE; +MIDAZOLAM HCL 2MG/2ML 2ml VIAL (1mg/ml) ONE; +MIDAZOLAM HCL 5 MG/ML-1ML VIAL ONE; +ONDANSETRON HCL 4 MG/2 ML VIAL IV ONE; +ONDANSETRON HCL 4 MG/2 ML VIAL IV PRN; +PROPOFOL 10 MG/ML 20 ML IV ONE; +SIMETHICONE 40 MG/0.6 ML ORAL DROP ONE; +SODIUM CHLORIDE LOCK 0 ML ONE; +diphenhdrAMINE HCL 50 MG/1 ML VL ONE; +fentaNYL CITRATE 100 MCG/2 ML VL ONE
[2021-09-11 16:25] VITALS: BP 134/82
== END | disposition home or self-care (01) ==
LOC: GI 12:03
PROVIDERS: ATTEND Internal Medicine Gastroenterology
DX: Z12.11 Encounter for screening for malignant neoplasm of colon (principal); R13.10 Dysphagia, unspecified; K29.50 Unspecified chronic gastritis without bleeding; D12.3 Benign neoplasm of transverse colon; D12.8 Benign neoplasm of rectum; K63.5 Polyp of colon; K31.7 Polyp of stomach and duodenum; K44.9 Diaphragmatic hernia without obstruction or gangrene; K29.90 Gastroduodenitis, unspecified, without bleeding; K21.00 Gastro-esophageal reflux disease with esophagitis, without bleeding; K57.30 Diverticulosis of large intestine without perforation or abscess without bleeding; K64.8 Other hemorrhoids; I10 Essential (primary) hypertension; E78.5 Hyperlipidemia, unspecified; I25.10 Atherosclerotic heart disease of native coronary artery without angina pectoris; M19.90 Unspecified osteoarthritis, unspecified site; I48.91 Unspecified atrial fibrillation; Z86.010 Personal history of colon polyps; Z87.891 Personal history of nicotine dependence; Z85.46 Personal history of malignant neoplasm of prostate; Z82.49 Family history of ischemic heart disease and other diseases of the circulatory system; Z80.42 Family history of malignant neoplasm of prostate; Z98.41 Cataract extraction status, right eye; Z98.42 Cataract extraction status, left eye; Z95.5 Presence of coronary angioplasty implant and graft; Z20.822 Contact with and (suspected) exposure to COVID-19
CPT/HCPCS: 36415; 43239; 43251; 43450; 45385; 80053; 81001; 85025; 85610; 85730; 88305; 88342; J2001; J2250; J2405; J2704; U0003; 99152; 99153

== ENCOUNTER → 2022-03-24 | Outpatient (CLI) | payer OTHER ==
[~2022-03-24] MED LIST changes: -HYDROmorphone HCL 2 MG/ML VL IV PRN; -KETAMINE 50mg/ML 10ml Vial (500mg/10ml) IV ONE; -LIDOCAINE 2% (LOCAL ANESTH.) PF 5ml SDV ONE; -LIDOCAINE VISCOUS 2% 15ML UD ONE; -MIDAZOLAM HCL 2MG/2ML 2ml VIAL (1mg/ml) ONE; -MIDAZOLAM HCL 5 MG/ML-1ML VIAL ONE; -ONDANSETRON HCL 4 MG/2 ML VIAL IV ONE; -ONDANSETRON HCL 4 MG/2 ML VIAL IV PRN; -PROPOFOL 10 MG/ML 20 ML IV ONE; -SIMETHICONE 40 MG/0.6 ML ORAL DROP ONE; -SODIUM CHLORIDE LOCK 0 ML ONE; -diphenhdrAMINE HCL 50 MG/1 ML VL ONE; -fentaNYL CITRATE 100 MCG/2 ML VL ONE
[2022-03-24 09:03] LABS: Basophils # (auto) 0.1 10 ^3/uL (0-0.2); Basophils % (auto) 0.8 % (0.0-2.0); Eosinophils # (auto) 0.3 10 ^3/uL (0-0.8); Eosinophils % (auto) 3.7 % (0.0-7.0); Hematocrit 37.8 % (41.0-53.0); Hemoglobin 12.5 g/dL (13.5-17.5); Lymphocytes % (auto) 27.7 % (10.0-50.0); Mean Corpuscular Hemoglobin 31.1 pg (28.0-32.0); Mean Corpuscular Hgb Conc. 33.2 g/dL (32.0-36.0); Mean Corpuscular Volume 93.7 fL (80.0-100.0); Monocytes # (auto) 0.5 10 ^3/uL (0-1.3); Neutrophils # (auto) 4.3 10 ^3/uL (1.6-8.6); Neutrophils % (auto) 60.8 % (37.0-80.0); Red Blood Cells 4.03 10^6/uL (4.5-5.90); White Blood Cell 7.1 10^3/uL (4.4-10.8)
[2022-03-24 09:45] LABS: Albumin 3.6 g/dL (3.4-5.0); Potassium 4.7 mmol/L (3.5-5.1)
[2022-03-24 09:48] LABS: BUN/Creatinine Ratio 18.8; Bilirubin, Total 0.4 mg/dL (0.2-1.0); Total Protein 6.9 g/dL (6.4-8.2)
== END | disposition home or self-care (01) ==
LOC: LAB 08:52
PROVIDERS: ATTEND Student in an Organized Health Care Education/Training Program
DX: I10 Essential (primary) hypertension (principal); E78.5 Hyperlipidemia, unspecified; R53.83 Other fatigue
CPT/HCPCS: 36415; 80053; 80061; 84443; 85025

== ENCOUNTER → 2022-04-23 | Outpatient (CLI) | payer OTHER | END | disposition home or self-care (01) | LOC: Rad HDHVI 08:17 | PROVIDERS: ATTEND Internal Medicine Cardiovascular Disease | DX: I37.1 Nonrheumatic pulmonary valve insufficiency (principal); R42 Dizziness and giddiness; R06.02 Shortness of breath | CPT/HCPCS: 93306 ==

== ENCOUNTER → 2022-04-26 | Outpatient (CLI) | payer OTHER ==
[~2022-04-26] VITALS: Ht 182.9 cm; Wt 86.2 kg
[~2022-04-26] MED LIST changes: +ADENOSINE 72 MG in GIVE UN-DILUTED 0 ML IV ONE; +ADENOSINE 90 MG/30 ML INJ IV ONE
== END | disposition home or self-care (01) ==
LOC: Rad HDHVI 08:43
PROVIDERS: ATTEND Internal Medicine Cardiovascular Disease
DX: I48.91 Unspecified atrial fibrillation (principal); R94.31 Abnormal electrocardiogram [ECG] [EKG]; E78.5 Hyperlipidemia, unspecified; R07.9 Chest pain, unspecified; R06.02 Shortness of breath; R42 Dizziness and giddiness; R00.2 Palpitations; I25.10 Atherosclerotic heart disease of native coronary artery without angina pectoris; I11.0 Hypertensive heart disease with heart failure; I50.42 Chronic combined systolic (congestive) and diastolic (congestive) heart failure; Z79.899 Other long term (current) drug therapy; Z82.49 Family history of ischemic heart disease and other diseases of the circulatory system
CPT/HCPCS: 78452; 93005; 96374; 96375; A9500; J0153

== ENCOUNTER → 2022-04-27 | Outpatient (CLI) | payer OTHER ==
[~2022-04-27] MED LIST changes: -ADENOSINE 72 MG in GIVE UN-DILUTED 0 ML IV ONE; -ADENOSINE 90 MG/30 ML INJ IV ONE
== END | disposition home or self-care (01) ==
LOC: LAB 13:48
PROVIDERS: ATTEND Internal Medicine Cardiovascular Disease
DX: R94.4 Abnormal results of kidney function studies (principal)
CPT/HCPCS: 36415; 82565; 84520

== ENCOUNTER → 2022-04-30 | Outpatient (CLI) | payer OTHER ==
[~2022-04-30] MED LIST changes: +IOHEXOL 350 MG/ML 100ML IJ ONE
[2022-04-30 11:01] VITALS: BP 134/74
[2022-04-30 11:22] VITALS: BP 132/60
== END | disposition home or self-care (01) ==
LOC: Rad HDHVI 10:54
PROVIDERS: ATTEND Internal Medicine Cardiovascular Disease
DX: K40.90 Unilateral inguinal hernia, without obstruction or gangrene, not specified as recurrent (principal); K42.9 Umbilical hernia without obstruction or gangrene; K57.30 Diverticulosis of large intestine without perforation or abscess without bleeding; I71.40 Abdominal aortic aneurysm, without rupture, unspecified; I51.7 Cardiomegaly; I70.0 Atherosclerosis of aorta; I77.4 Celiac artery compression syndrome; I72.3 Aneurysm of iliac artery
CPT/HCPCS: 74175; G0463; Q9967

== ENCOUNTER → 2022-06-14 | Outpatient (CLI) | payer OTHER ==
[~2022-06-14] MED LIST changes: +CHOL20007 PO; +DOCU100T7 PO; +HYDR-4798 PO; -IOHEXOL 350 MG/ML 100ML IJ ONE
[2022-06-14 12:12] VITALS: BP 128/70
[2022-06-14 12:15] VITALS: BP 128/70
[2022-06-14 16:15] LABS: Basophils # (auto) 0 10 ^3/uL (0-0.2); Basophils % (auto) 0.6 % (0.0-2.0); Eosinophils # (auto) 0.3 10 ^3/uL (0-0.8); Eosinophils % (auto) 3.8 % (0.0-7.0); Hematocrit 39.5 % (41.0-53.0); Hemoglobin 13.2 g/dL (13.5-17.5); Lymphocytes # (auto) 2.1 10 ^3/uL (0.4-5.4); Lymphocytes % (auto) 29.8 % (10.0-50.0); Mean Corpuscular Hemoglobin 32.1 pg (28.0-32.0); Mean Corpuscular Hgb Conc. 33.5 g/dL (32.0-36.0); Mean Corpuscular Volume 95.6 fL (80.0-100.0); Monocytes # (auto) 0.5 10 ^3/uL (0-1.3); Neutrophils # (auto) 4.1 10 ^3/uL (1.6-8.6); Neutrophils % (auto) 58.8 % (37.0-80.0); Nucleated Red Blood Cells % 0.1 %; Red Blood Cells 4.13 10^6/uL (4.5-5.90); Red Cell Distribution Width 12.8 % (11.8-14.3); White Blood Cell 6.9 10^3/uL (4.4-10.8)
[2022-06-14 16:28] LABS: BUN/Creatinine Ratio 14.9; Calcium 8.8 mg/dL (8.5-10.1); Potassium 4.8 mmol/L (3.5-5.1)
[2022-06-14 16:41] LABS: INR 0.98 (0.9-1.15); Partial Thromboplastin Time 27.1 sec (24.6-33.4)
== END | disposition home or self-care (01) ==
LOC: Rad HDHVI 11:59
PROVIDERS: ATTEND Internal Medicine Cardiovascular Disease
DX: I48.0 Paroxysmal atrial fibrillation (principal)
CPT/HCPCS: 36415; 71046; 80048; 85025; 85610; 85730; G0463

== ENCOUNTER 2022-06-17 07:45 | Day surgery (SDC) | payer OTHER ==
[2022-06-17] VITALS (9 sets, daily range): BP systolic 116–133; BP diastolic 54–76
[~2022-06-17] VITALS: Ht 185.4 cm; Wt 87.5 kg
[~2022-06-17 07:45] MED LIST changes: -DOCU100T15 PO; -HYDR-4833 PO
[2022-06-17] MEDS ORDERED: fentaNYL CITRATE 100 MCG/2 ML VL ONE (09:31)
[2022-06-17] MEDS ORDERED: VANCOMYCIN HCL 1000 MG VL ONE (09:31)
[2022-06-17] MEDS ORDERED: LIDOCAINE 2%HCL (LOCAL ANESTH.) INJ 20ML MDV ONE (09:32)
[2022-06-17] MEDS ORDERED: MIDAZOLAM HCL 2MG/2ML 2ml VIAL (1mg/ml) ONE (09:32)
[2022-06-17] MEDS ORDERED: VANCOMYCIN 1GM/250ML 250 ML IV ONE ×2 (09:35→09:45)
== END 2022-06-17 13:15 | disposition home or self-care (01) ==
LOC: CATH 07:45
PROVIDERS: ATTEND Internal Medicine Cardiovascular Disease
DX: I49.5 Sick sinus syndrome (principal); I10 Essential (primary) hypertension; E78.5 Hyperlipidemia, unspecified; I48.91 Unspecified atrial fibrillation; Z79.899 Other long term (current) drug therapy; Z79.01 Long term (current) use of anticoagulants; Z20.822 Contact with and (suspected) exposure to COVID-19
CPT/HCPCS: 33208; 71045; 93005; C1769; C1785; C1892; C1898; J2250; J3010; J3370; J7030; U0003; 99152

== ENCOUNTER → 2022-06-18 | Outpatient (CLI) | payer OTHER | END | disposition home or self-care (01) | LOC: Rad HDHVI 10:56 | PROVIDERS: ATTEND Internal Medicine Cardiovascular Disease | DX: J43.0 Unilateral pulmonary emphysema [MacLeod's syndrome] (principal); Q25.46 Tortuous aortic arch; M47.819 Spondylosis without myelopathy or radiculopathy, site unspecified; M19.019 Primary osteoarthritis, unspecified shoulder | CPT/HCPCS: 71046 ==

== ENCOUNTER → 2022-11-01 | Outpatient (CLI) | payer OTHER | END | disposition home or self-care (01) | LOC: LAB 11:27 | PROVIDERS: ATTEND Urology | DX: C61 Malignant neoplasm of prostate (principal) | CPT/HCPCS: 84153 ==

== ENCOUNTER → 2023-06-01 | Outpatient (CLI) | payer OTHER ==
[~2023-06-01] MED LIST changes: -LISI20TA28 PO; +LISI20TA56 PO
[2023-06-01 08:21] LABS: Basophils # (auto) 0.1 10 ^3/uL (0-0.2); Basophils % (auto) 1.3 % (0.0-2.0); Eosinophils # (auto) 0.4 10 ^3/uL (0-0.8); Eosinophils % (auto) 5.2 % (0.0-7.0); Hematocrit 37.6 % (41.0-53.0); Hemoglobin 12.6 g/dL (13.5-17.5); Lymphocytes # (auto) 2.4 10 ^3/uL (0.4-5.4); Lymphocytes % (auto) 29.1 % (10.0-50.0); Mean Corpuscular Hgb Conc. 33.6 g/dL (32.0-36.0); Mean Corpuscular Volume 95.2 fL (80.0-100.0); Monocytes # (auto) 0.6 10 ^3/uL (0-1.3); Monocytes % (auto) 6.8 % (0.0-12.0); Neutrophils # (auto) 4.7 10 ^3/uL (1.6-8.6); Neutrophils % (auto) 57.6 % (37.0-80.0); Red Blood Cells 3.95 10^6/uL (4.5-5.90); Red Cell Distribution Width 13.2 % (11.8-14.3); White Blood Cell 8.2 10^3/uL (4.4-10.8)
[2023-06-01 08:38] LABS: Alanine Aminotransferase 15 U/L (7-40); Albumin 4.4 g/dL (3.2-4.8); Alkaline Phosphatase 88 U/L (46-116); Anion Gap 7 (5-15); Aspartate Aminotransferase 15 U/L (13-40); BUN/Creatinine Ratio 15.6 (10.0-20.0); Bilirubin, Total 0.3 mg/dL (0.2-1.0); Blood Urea Nitrogen 30 mg/dL (9-23); Calcium 9.6 mg/dL (8.5-10.1); Carbon Dioxide 25 mmol/L (20-30); Chloride 110 mmol/L (98-107); Cholesterol 130 mg/dL (< 200); Glucose 98 mg/dL (74-106); HDL Cholesterol 26 mg/dL (40-59); LDL Cholesterol 75 mg/dL (< 100); Potassium 4.5 mmol/L (3.5-5.1); Sodium 142 mmol/L (136-145); Triglycerides 128 mg/dL (< 150)
[2023-06-01 08:39] LABS: Total Protein 6.9 g/dL (5.7-8.2)
== END | disposition home or self-care (01) ==
LOC: LAB 08:05
PROVIDERS: ATTEND Student in an Organized Health Care Education/Training Program
DX: I12.9 Hypertensive chronic kidney disease with stage 1 through stage 4 chronic kidney disease, or unspecified chronic kidney disease (principal); N18.31 Chronic kidney disease, stage 3a; I49.5 Sick sinus syndrome; I48.0 Paroxysmal atrial fibrillation
CPT/HCPCS: 36415; 80053; 80061; 85025

== ENCOUNTER 2023-07-05 11:40 | Inpatient (IN) | payer OTHER ==
[~2023-07-05] VITALS: Ht 177.8 cm; Wt 109.2 kg
[2023-07-05 13:42] LABS: Basophils # (auto) 0.1 10 ^3/uL (0-0.2); Basophils % (auto) 0.7 % (0.0-2.0); Eosinophils # (auto) 0.2 10 ^3/uL (0-0.8); Eosinophils % (auto) 2.5 % (0.0-7.0); Hematocrit 40.6 % (41.0-53.0); Hemoglobin 13.4 g/dL (13.5-17.5); Lymphocytes # (auto) 2.4 10 ^3/uL (0.4-5.4); Lymphocytes % (auto) 24.2 % (10.0-50.0); Mean Corpuscular Hemoglobin 31.3 pg (28.0-32.0); Mean Corpuscular Hgb Conc. 32.9 g/dL (32.0-36.0); Monocytes # (auto) 0.8 10 ^3/uL (0-1.3); Monocytes % (auto) 7.7 % (0.0-12.0); Neutrophils # (auto) 6.4 10 ^3/uL (1.6-8.6); Neutrophils % (auto) 64.9 % (37.0-80.0); Nucleated Red Blood Cells % 0.1 %; Red Blood Cells 4.27 10^6/uL (4.5-5.90); Red Cell Distribution Width 13.1 % (11.8-14.3); White Blood Cell 9.9 10^3/uL (4.4-10.8)
[2023-07-05 14:00] LABS: Alanine Aminotransferase 16 U/L (7-40); Albumin 4.5 g/dL (3.2-4.8); Alkaline Phosphatase 97 U/L (46-116); Anion Gap 9 (5-15); Aspartate Aminotransferase 20 U/L (13-40); BUN/Creatinine Ratio 14.1 (10.0-20.0); Bilirubin, Total 0.4 mg/dL (0.2-1.0); Blood Urea Nitrogen 24 mg/dL (9-23); Calcium 9.5 mg/dL (8.7-10.4); Carbon Dioxide 24 mmol/L (20-30); Chloride 106 mmol/L (98-107); Glucose 78 mg/dL (74-106); Sodium 139 mmol/L (136-145); Total Protein 6.9 g/dL (5.7-8.2)
[2023-07-05 14:10] LABS: INR 1.28 (0.9-1.15); Partial Thromboplastin Time 41.6 SEC (24.5-34.5); Prothrombin Time 13.5 sec (9.3-11.8)
[2023-07-05] MEDS ORDERED: ONDANSETRON HCL 4 MG/2 ML VIAL IV ONE (16:00)
[2023-07-05] MEDS ORDERED: MORPHINE SULFATE 4 MG/ML SYR/VIAL IV ONE (16:00)
[2023-07-05] MEDS ORDERED: PANTOPRAZOLE 40 MG/10 ML VIAL INJ IV ONE (16:00)
[2023-07-05] MEDS ORDERED: MORPHINE SULFATE INJ 2 MG/ml SYRG IV PRN (18:30)
[2023-07-05] MEDS ORDERED: DOCUSATE SOD 100 MG CAP PO PRN (18:30)
[2023-07-05] MEDS ORDERED: HYDROcodone-ACET 5/325MG TAB PO PRN (18:30)
[2023-07-05] MEDS ORDERED: ACETAMINOPHEN 325 MG TAB PO PRN (18:30)
[2023-07-05] MEDS ORDERED: ONDANSETRON HCL 4 MG/2 ML VIAL IV PRN (18:30)
[2023-07-05 19:59] LABS: COVID19 ANTIGEN SOFIA FIA NEGATIVE (NEGATIVE)
[2023-07-05 20:01] LABS: Rapid Influenza A Negative (Negative)
[2023-07-05] MEDS ORDERED: METO-289 PO (20:05)
[2023-07-05] MEDS ORDERED: LISI10TA34 PO (20:05)
[2023-07-05 20:07] LABS: Rapid Influenza B Positive (Negative)
[2023-07-05] MEDS ORDERED: ATOR20TA50 PO (20:07)
[2023-07-05] MEDS ORDERED: AMIO100T3 PO (20:07)
[2023-07-05] MEDS: SODIUM CHLORIDE 0.9% 1,000 ML IV SCH (20:19)
[2023-07-05] MEDS: METOPROLOL SUCCINATE XL 50 MG TAB PO SCH (22:00)
[2023-07-05] MEDS ORDERED: ATORVASTATIN 20 MG TAB PO SCH (22:00)
[2023-07-05] MEDS ORDERED: DOCUSATE SOD 100 MG CAP PO SCH (22:00)
[2023-07-05] MEDS ORDERED: DOCUSATE SODIUM 250 MG PO SCH (22:00)
[2023-07-06] MEDS: PANTOPRAZOLE 40 MG/10 ML VIAL INJ IV SCH ×2 (00:14→10:38)
[2023-07-06] MEDS: SODIUM CHLORIDE 0.9% 1,000 ML IV SCH ×2 (02:50→11:10)
[2023-07-06 04:55] VITALS: PULSE 70; RESP 18; TEMP 97.7; O2SAT 94
[2023-07-06 07:10] LABS: Basophils # (auto) 0.1 10 ^3/uL (0-0.2); Basophils % (auto) 0.6 % (0.0-2.0); Eosinophils # (auto) 0.4 10 ^3/uL (0-0.8); Eosinophils % (auto) 4.6 % (0.0-7.0); Hemoglobin 12.1 g/dL (13.5-17.5); Lymphocytes % (auto) 22.2 % (10.0-50.0); Mean Corpuscular Hgb Conc. 33.7 g/dL (32.0-36.0); Mean Corpuscular Volume 95.2 fL (80.0-100.0); Monocytes # (auto) 0.7 10 ^3/uL (0-1.3); Monocytes % (auto) 7.7 % (0.0-12.0); Neutrophils # (auto) 5.8 10 ^3/uL (1.6-8.6); Neutrophils % (auto) 64.9 % (37.0-80.0); Red Blood Cells 3.78 10^6/uL (4.5-5.90)
[2023-07-06 07:29] LABS: Alanine Aminotransferase 13 U/L (7-40); Alkaline Phosphatase 82 U/L (46-116); Anion Gap 6 (5-15); Aspartate Aminotransferase 15 U/L (13-40); BUN/Creatinine Ratio 11.4 (10.0-20.0); Bilirubin, Total 0.3 mg/dL (0.2-1.0); Blood Urea Nitrogen 19 mg/dL (9-23); Calcium 8.8 mg/dL (8.7-10.4); Carbon Dioxide 26 mmol/L (20-30); Chloride 107 mmol/L (98-107); Glucose 98 mg/dL (74-106); Potassium 4.4 mmol/L (3.5-5.1); Sodium 139 mmol/L (136-145); Total Protein 6.4 g/dL (5.7-8.2)
[2023-07-06] MEDS ORDERED: LORATADINE 10 MG TAB PO SCH (10:00)
[2023-07-06] MEDS ORDERED: AMIODARONE HCL 200 MG TAB PO SCH (10:00)
[2023-07-06] MEDS ORDERED: DOCUSATE SOD 100 MG CAP PO SCH (10:00)
[2023-07-06] MEDS ORDERED: MULTIPLE VITAMIN TAB PO SCH (10:00)
[2023-07-06] MEDS: METOPROLOL SUCCINATE XL 50 MG TAB PO SCH (10:39)
[2023-07-06 12:22] LABS: Urine WBC None Seen /hpf (0 - 3)
[2023-07-06 12:50] LABS: Urine Bacteria NONE SEEN /hpf (None Seen); Urine Blood Negative /uL (Negative); Urine Clarity Clear (Clear); Urine Protein, UAD Negative (Negative); Urine Specific Gravity 1.004 (1.001-1.035); Urine Urobilinogen Normal (Negative)
[2023-07-06 13:02] LABS: Urine Color Straw (Yellow)
[2023-07-06] MEDS ORDERED: PANT40T PO (13:42)
[2023-07-06 14:00] VITALS: BP 117/45; PULSE 60; RESP 16; O2SAT 94
[2023-07-06] MEDS ORDERED: SUCRALFATE 1 GM TAB PO SCH (17:00)
== END 2023-07-05 18:32 | disposition home or self-care (01) | DRG 391 ==
LOC: ER 11:40 → EDBD 11:40 → OVERFLOW 18:32
PROVIDERS: ADMIT Nurse Practitioner Family; ATTEND Internal Medicine
DX: R10.30 Lower abdominal pain, unspecified (principal); N17.0 Acute kidney failure with tubular necrosis; I10 Essential (primary) hypertension; I25.10 Atherosclerotic heart disease of native coronary artery without angina pectoris; E78.5 Hyperlipidemia, unspecified; K29.70 Gastritis, unspecified, without bleeding; Z20.822 Contact with and (suspected) exposure to COVID-19; Z82.49 Family history of ischemic heart disease and other diseases of the circulatory system; Z87.19 Personal history of other diseases of the digestive system; Z87.891 Personal history of nicotine dependence; Z95.0 Presence of cardiac pacemaker; Z95.5 Presence of coronary angioplasty implant and graft
CPT/HCPCS: 36415; 71045; 74176; 80053; 81001; 82270; 83880; 84484; 85025; 85610; 85730; 87426; 87804; 93005; 96374; 96375; 96376; C9113; G0378; J2405

== ENCOUNTER → 2023-09-07 | Outpatient (CLI) | payer OTHER ==
[~2023-09-07] VITALS: Ht 182.9 cm; Wt 88.5 kg
[~2023-09-07] MED LIST changes: +ADENOSINE 74 MG in GIVE UN-DILUTED 0 ML IV ONE; +ADENOSINE 90 MG/30 ML INJ IV ONE; +AMIO100T3 PO; +ATOR20TA50 PO; +LISI10TA34 PO; +METO-289 PO; -PANT1INJ3 PO; +PANT40T PO
== END | disposition home or self-care (01) ==
LOC: Rad HDHVI 09:48
PROVIDERS: ATTEND Internal Medicine Cardiovascular Disease
DX: I12.9 Hypertensive chronic kidney disease with stage 1 through stage 4 chronic kidney disease, or unspecified chronic kidney disease (principal); N18.31 Chronic kidney disease, stage 3a; I25.119 Atherosclerotic heart disease of native coronary artery with unspecified angina pectoris; E78.00 Pure hypercholesterolemia, unspecified; I71.00 Dissection of unspecified site of aorta; R06.02 Shortness of breath; Z95.0 Presence of cardiac pacemaker; Z82.49 Family history of ischemic heart disease and other diseases of the circulatory system
CPT/HCPCS: 78452; 93005; 96374; 96375; A9500; J0153

== ENCOUNTER → 2023-10-19 | Outpatient (CLI) | payer OTHER ==
[~2023-10-19] MED LIST changes: -ADENOSINE 74 MG in GIVE UN-DILUTED 0 ML IV ONE; -ADENOSINE 90 MG/30 ML INJ IV ONE; +ATOR20TA PO; +DOCU250C12 PO; +LISI-275 PO; +PANT40TA2 PO; +[UNRECOGNIZED DRUG - CODE] PO
== END | disposition home or self-care (01) ==
LOC: LAB 15:34
PROVIDERS: ATTEND Urology
DX: C67.9 Malignant neoplasm of bladder, unspecified (principal)

== ENCOUNTER 2023-10-20 08:56 | Day surgery (SDC) | payer OTHER ==
[2023-10-19 15:41] LABS: INR 1.02 (0.9-1.15); Partial Thromboplastin Time 29.1 SEC (24.5-34.5); Prothrombin Time 10.7 sec (9.3-11.8)
[2023-10-19 15:50] LABS: Basophils # (auto) 0.1 10 ^3/uL (0-0.2); Eosinophils # (auto) 0.4 10 ^3/uL (0-0.8); Eosinophils % (auto) 3.9 % (0.0-7.0); Hematocrit 41.8 % (41.0-53.0); Hemoglobin 13.9 g/dL (13.5-17.5); Lymphocytes # (auto) 2.8 10 ^3/uL (0.4-5.4); Lymphocytes % (auto) 30.4 % (10.0-50.0); Mean Corpuscular Hemoglobin 31.6 pg (28.0-32.0); Mean Corpuscular Hgb Conc. 33.1 g/dL (32.0-36.0); Mean Corpuscular Volume 95.5 fL (80.0-100.0); Monocytes # (auto) 0.8 10 ^3/uL (0-1.3); Monocytes % (auto) 8.2 % (0.0-12.0); Neutrophils # (auto) 5.3 10 ^3/uL (1.6-8.6); Neutrophils % (auto) 56.5 % (37.0-80.0); Nucleated Red Blood Cells % 0.3 %; Red Blood Cells 4.38 10^6/uL (4.5-5.90); Red Cell Distribution Width 13.3 % (11.8-14.3); White Blood Cell 9.4 10^3/uL (4.4-10.8)
[2023-10-19 16:16] LABS: Alanine Aminotransferase 16 U/L (7-40); Albumin 4.8 g/dL (3.2-4.8); Alkaline Phosphatase 98 U/L (46-116); Anion Gap 4 (5-15); Aspartate Aminotransferase 20 U/L (13-40); BUN/Creatinine Ratio 11.9 (10.0-20.0); Bilirubin, Total 0.3 mg/dL (0.2-1.0); Blood Urea Nitrogen 19 mg/dL (9-23); Calcium 9.6 mg/dL (8.5-10.1); Carbon Dioxide 28 mmol/L (20-30); Chloride 106 mmol/L (98-107); Glucose 85 mg/dL (74-106); Potassium 4.8 mmol/L (3.5-5.1); Sodium 138 mmol/L (136-145); Total Protein 7.6 g/dL (5.7-8.2)
[~2023-10-20] VITALS: Ht 182.9 cm; Wt 89.4 kg
[~2023-10-20 08:56] MED LIST changes: -AMIO100T3 PO; -ATOR20TA50 PO; -ATOR40TA52 PO; -CHOL20007 PO; -DOCU100T7 PO; -LISI10TA34 PO; -LISI20TA56 PO; -PANT40TA2 PO
[2023-10-20] MEDS ORDERED: LIDOCAINE 2%HCL (LOCAL ANESTH.) INJ 20ML MDV ONE (09:45)
[2023-10-20] MEDS ORDERED: IOHEXOL 350 MG/ML 100ML IJ ONE (09:45)
[2023-10-20] MEDS ORDERED: ANGIOMAX 250 MG VIAL IV ONE (09:53)
[2023-10-20] MEDS ORDERED: MIDAZOLAM HCL 2MG/2ML 2ml VIAL (1mg/ml) ONE (09:54)
[2023-10-20] MEDS ORDERED: SODIUM CHL 0.9% 0 ML ONE (09:54)
[2023-10-20] MEDS ORDERED: fentaNYL CITRATE 100 MCG/2 ML VL ONE (09:54)
[2023-10-20] MEDS ORDERED: VERAPAMIL 2.5MG/ML INJ 2ML VIAL IV ONE (09:57)
== END 2023-10-20 12:56 | disposition home or self-care (01) ==
LOC: CATH 08:56
PROVIDERS: ATTEND Internal Medicine Cardiovascular Disease
DX: R94.39 Abnormal result of other cardiovascular function study (principal); R06.02 Shortness of breath; I70.92 Chronic total occlusion of artery of the extremities; I25.10 Atherosclerotic heart disease of native coronary artery without angina pectoris; F17.210 Nicotine dependence, cigarettes, uncomplicated; Z79.899 Other long term (current) drug therapy; Z95.5 Presence of coronary angioplasty implant and graft; Z95.0 Presence of cardiac pacemaker; Z85.46 Personal history of malignant neoplasm of prostate; Z98.890 Other specified postprocedural states; Z82.49 Family history of ischemic heart disease and other diseases of the circulatory system; Z84.89 Family history of other specified conditions
CPT/HCPCS: 36415; 80053; 85025; 85610; 85730; 93458; C1760; C1894; J1644; J2250; J3010; Q9967; 99152; 99153

== ENCOUNTER → 2023-11-11 | Day surgery (SDC) | payer OTHER ==
[2023-11-09 13:23] LABS: Urine Bacteria None Seen /hpf (None Seen)
[2023-11-09 13:26] LABS: Basophils # (auto) 0.1 10 ^3/uL (0-0.2); Basophils % (auto) 0.9 % (0.0-2.0); Eosinophils # (auto) 0.4 10 ^3/uL (0-0.8); Eosinophils % (auto) 5.1 % (0.0-7.0); Hematocrit 38.9 % (41.0-53.0); Hemoglobin 12.9 g/dL (13.5-17.5); Lymphocytes # (auto) 2.1 10 ^3/uL (0.4-5.4); Lymphocytes % (auto) 27.5 % (10.0-50.0); Mean Corpuscular Hemoglobin 31.9 pg (28.0-32.0); Mean Corpuscular Hgb Conc. 33.2 g/dL (32.0-36.0); Mean Corpuscular Volume 95.9 fL (80.0-100.0); Monocytes # (auto) 0.5 10 ^3/uL (0-1.3); Monocytes % (auto) 7.2 % (0.0-12.0); Neutrophils # (auto) 4.4 10 ^3/uL (1.6-8.6); Neutrophils % (auto) 59.3 % (37.0-80.0); Red Blood Cells 4.05 10^6/uL (4.5-5.90); Red Cell Distribution Width 13.4 % (11.8-14.3); White Blood Cell 7.5 10^3/uL (4.4-10.8)
[2023-11-09 13:34] LABS: Urine Blood Negative /uL (Negative); Urine Clarity Clear (Clear); Urine Color Yellow (Yellow); Urine Hyaline Cast FEW /lpf (0 - 2); Urine Protein, UAD Negative (Negative); Urine Specific Gravity 1.015 (1.001-1.035); Urine Urobilinogen Normal (Negative); Urine WBC <1 /hpf (0 - 3)
[2023-11-09 13:43] LABS: INR 1.01 (0.9-1.15); Partial Thromboplastin Time 25.6 SEC (24.5-34.5); Prothrombin Time 10.7 sec (9.3-11.8)
[2023-11-09 14:22] LABS: Alanine Aminotransferase 14 U/L (7-40); Alkaline Phosphatase 94 U/L (46-116); Anion Gap 6 (5-15); BUN/Creatinine Ratio 9.7 (10.0-20.0); Blood Urea Nitrogen 17 mg/dL (9-23); Calcium 9.6 mg/dL (8.5-10.1); Carbon Dioxide 26 mmol/L (20-30); Chloride 108 mmol/L (98-107); Glucose 80 mg/dL (74-106); Potassium 4.7 mmol/L (3.5-5.1); Sodium 140 mmol/L (136-145)
[2023-11-09 14:23] LABS: Albumin 4.4 g/dL (3.2-4.8); Aspartate Aminotransferase 22 U/L (13-40); Bilirubin, Total 0.4 mg/dL (0.2-1.0)
[~2023-11-11] VITALS: Ht 182.9 cm; Wt 89.4 kg
[~2023-11-11] MED LIST changes: +HYDROmorphone HCL 2 MG/ML VL/or syr IV PRN; +KETAMINE 50mg/ML 1ml syringe ONE; +LIDOCAINE VISCOUS 2% 15ML UD ONE; +METOCLOPRAMIDE HCL 5MG/ml INJ 2ml VIAL IV ONE; +MIDAZOLAM HCL 2MG/2ML 2ml VIAL (1mg/ml) ONE; +MORPHINE SULFATE INJ 2 MG/ml SYRG IV PRN; +ONDANSETRON HCL 4 MG/2 ML VIAL ONE; +PROPOFOL 10 MG/ML 20 ML IV ONE; +SODIUM CHLORIDE LOCK 10 ML ONE; +fentaNYL CITRATE 100 MCG/2 ML VL IV PRN; +fentaNYL CITRATE 100 MCG/2 ML VL ONE
[2023-11-11 13:09] VITALS: TEMP 98
[2023-11-11 13:23] VITALS: O2SAT 98
[2023-11-11 13:54] VITALS: BP 118/79; PULSE 75; RESP 17; O2SAT 96
== END | disposition home or self-care (01) ==
LOC: GI 09:43
PROVIDERS: ATTEND Internal Medicine Gastroenterology
DX: K62.5 Hemorrhage of anus and rectum (principal); D12.2 Benign neoplasm of ascending colon; K57.30 Diverticulosis of large intestine without perforation or abscess without bleeding; R13.10 Dysphagia, unspecified; K29.50 Unspecified chronic gastritis without bleeding; K44.9 Diaphragmatic hernia without obstruction or gangrene; K31.7 Polyp of stomach and duodenum; K64.8 Other hemorrhoids; K21.9 Gastro-esophageal reflux disease without esophagitis; I48.91 Unspecified atrial fibrillation; I25.119 Atherosclerotic heart disease of native coronary artery with unspecified angina pectoris; I12.9 Hypertensive chronic kidney disease with stage 1 through stage 4 chronic kidney disease, or unspecified chronic kidney disease; N18.4 Chronic kidney disease, stage 4 (severe); J44.9 Chronic obstructive pulmonary disease, unspecified; E78.5 Hyperlipidemia, unspecified; Z79.899 Other long term (current) drug therapy; Z85.46 Personal history of malignant neoplasm of prostate; Z86.73 Personal history of transient ischemic attack (TIA), and cerebral infarction without residual deficits; Z90.79 Acquired absence of other genital organ(s); Z86.010 Personal history of colon polyps; Z95.0 Presence of cardiac pacemaker; Z95.5 Presence of coronary angioplasty implant and graft; Z98.890 Other specified postprocedural states
CPT/HCPCS: 36415; 43239; 43450; 45380; 45385; 80053; 81001; 85025; 85610; 85730; 88307; 88312; 88342; J2250; J2405; J2704; J3010; J7030

== ENCOUNTER 2023-11-24 20:47 | Inpatient (IN) | payer OTHER ==
[~2023-11-24] VITALS: Ht 180.3 cm; Wt 95.5 kg
[~2023-11-24 20:47] MED LIST changes: -HYDROmorphone HCL 2 MG/ML VL/or syr IV PRN; -KETAMINE 50mg/ML 1ml syringe ONE; -LIDOCAINE VISCOUS 2% 15ML UD ONE; -METOCLOPRAMIDE HCL 5MG/ml INJ 2ml VIAL IV ONE; -MIDAZOLAM HCL 2MG/2ML 2ml VIAL (1mg/ml) ONE; -MORPHINE SULFATE INJ 2 MG/ml SYRG IV PRN; -ONDANSETRON HCL 4 MG/2 ML VIAL ONE; -PROPOFOL 10 MG/ML 20 ML IV ONE; -SODIUM CHLORIDE LOCK 10 ML ONE; -fentaNYL CITRATE 100 MCG/2 ML VL IV PRN; -fentaNYL CITRATE 100 MCG/2 ML VL ONE
[2023-11-24] MEDS ORDERED: B COCAP12 PO (23:07)
[2023-11-24] MEDS ORDERED: CHOL1TAB30 PO (23:07)
[2023-11-24] MEDS ORDERED: METO-6 PO (23:07)
[2023-11-24] MEDS ORDERED: CETI10CA PO (23:07)
[2023-11-24] MEDS: cefTRIAXone 1GM/50ML D5W 50 ML IV SCH (23:30)
[2023-11-24] MEDS ORDERED: MORPHINE SULFATE INJ 2 MG/ml SYRG IV PRN (23:45)
[2023-11-24] MEDS ORDERED: ONDANSETRON HCL 4 MG/2 ML VIAL IV PRN (23:45)
[2023-11-24] MEDS ORDERED: NITROGLYCERIN 0.4 MG SL TAB SL PRN (23:45)
[2023-11-24] MEDS ORDERED: ACETAMINOPHEN 325 MG TAB PO PRN (23:45)
[2023-11-24] MEDS ORDERED: DOCUSATE SOD 100 MG CAP PO PRN (23:45)
[2023-11-25] VITALS (9 sets, daily range): BP systolic 102–133; BP diastolic 49–72; PULSE 60–74; RESP 16–18; TEMP 98–99.7; O2SAT 92–98
[2023-11-25 00:12] LABS: Basophils # (auto) 0.1 10 ^3/uL (0-0.2); Basophils % (auto) 0.4 % (0.0-2.0); Eosinophils # (auto) 0 10 ^3/uL (0-0.8); Eosinophils % (auto) 0.2 % (0.0-7.0); Hematocrit 36.4 % (41.0-53.0); Lymphocytes # (auto) 1.6 10 ^3/uL (0.4-5.4); Lymphocytes % (auto) 12.5 % (10.0-50.0); Mean Corpuscular Hemoglobin 31.5 pg (28.0-32.0); Mean Corpuscular Volume 95.7 fL (80.0-100.0); Monocytes # (auto) 0.6 10 ^3/uL (0-1.3); Neutrophils # (auto) 10.4 10 ^3/uL (1.6-8.6); Neutrophils % (auto) 81.9 % (37.0-80.0); Red Blood Cells 3.81 10^6/uL (4.5-5.90); Red Cell Distribution Width 13.1 % (11.8-14.3); White Blood Cell 12.7 10^3/uL (4.4-10.8)
[2023-11-25 00:28] LABS: Alanine Aminotransferase 13 U/L (7-40); Albumin 3.7 g/dL (3.2-4.8); Alkaline Phosphatase 76 U/L (46-116); Anion Gap 6 (5-15); Aspartate Aminotransferase 16 U/L (13-40); BUN/Creatinine Ratio 13.4 (10.0-20.0); Blood Urea Nitrogen 20 mg/dL (9-23); Calcium 8.6 mg/dL (8.7-10.4); Carbon Dioxide 23 mmol/L (20-30); Chloride 111 mmol/L (98-107); Glucose 104 mg/dL (74-106); Potassium 4.7 mmol/L (3.5-5.1); Sodium 140 mmol/L (136-145)
[2023-11-25 00:29] LABS: Bilirubin, Total 0.4 mg/dL (0.2-1.0)
[2023-11-25] MEDS: SODIUM CHLORIDE 0.9% 1,000 ML IV SCH (04:18)
[2023-11-25] MEDS: HYDROcodone-ACET 5/325MG TAB PO PRN (05:05)
[2023-11-25 06:13] LABS: Basophils # (auto) 0 10 ^3/uL (0-0.2); Basophils % (auto) 0.2 % (0.0-2.0); Eosinophils # (auto) 0 10 ^3/uL (0-0.8); Eosinophils % (auto) 0.3 % (0.0-7.0); Hematocrit 34.1 % (41.0-53.0); Hemoglobin 11.3 g/dL (13.5-17.5); Lymphocytes % (auto) 17.8 % (10.0-50.0); Mean Corpuscular Hemoglobin 31.7 pg (28.0-32.0); Mean Corpuscular Hgb Conc. 33.3 g/dL (32.0-36.0); Mean Corpuscular Volume 95.1 fL (80.0-100.0); Monocytes # (auto) 0.7 10 ^3/uL (0-1.3); Monocytes % (auto) 5.7 % (0.0-12.0); Neutrophils # (auto) 8.7 10 ^3/uL (1.6-8.6); Red Blood Cells 3.58 10^6/uL (4.5-5.90); Red Cell Distribution Width 13.2 % (11.8-14.3); White Blood Cell 11.5 10^3/uL (4.4-10.8)
[2023-11-25 06:38] LABS: Alanine Aminotransferase 10 U/L (7-40); Albumin 3.6 g/dL (3.2-4.8); Alkaline Phosphatase 72 U/L (46-116); Anion Gap 7 (5-15); Aspartate Aminotransferase 15 U/L (13-40); BUN/Creatinine Ratio 12.9 (10.0-20.0); Blood Urea Nitrogen 20 mg/dL (9-23); Calcium 8.7 mg/dL (8.7-10.4); Carbon Dioxide 21 mmol/L (20-30); Chloride 112 mmol/L (98-107); Glucose 96 mg/dL (74-106); Potassium 4.5 mmol/L (3.5-5.1); Sodium 140 mmol/L (136-145)
[2023-11-25 06:39] LABS: Bilirubin, Total 0.5 mg/dL (0.2-1.0); Total Protein 5.8 g/dL (5.7-8.2)
[2023-11-25] MEDS: PANTOPRAZOLE 40 MG/10 ML VIAL INJ IV SCH (09:25)
[2023-11-25 13:30] LABS: Urine Bacteria None Seen /hpf (None Seen)
[2023-11-25 13:54] LABS: Urine Blood TRACE /uL (Negative); Urine Clarity Clear (Clear); Urine Color Light-Yellow (Yellow); Urine Mucus FEW (None Seen); Urine Protein, UAD TRACE (Negative); Urine Urobilinogen Normal (Negative); Urine WBC <1 /hpf (0 - 3)
[2023-11-25 15:45] LABS: Creatinine, Urine 108.67 mg/dL (30.0-125.0)
[2023-11-25] MEDS: OMNIPAQUE 12mg/ml 500ml ORAL SOLUTION PO ONE (16:42)
[2023-11-25] MEDS: metroNIDAZOLE 500MG/100ML 100 ML IV SCH (23:43)
[2023-11-26] VITALS (8 sets, daily range): BP systolic 101–164; BP diastolic 58–88; PULSE 50–78; RESP 14–20; TEMP 97.4–98.3; O2SAT 95–99
[2023-11-26 06:06] LABS: Basophils # (auto) 0 10 ^3/uL (0-0.2); Basophils % (auto) 0.4 % (0.0-2.0); Eosinophils # (auto) 0.2 10 ^3/uL (0-0.8); Eosinophils % (auto) 2.7 % (0.0-7.0); Hemoglobin 11.2 g/dL (13.5-17.5); Lymphocytes # (auto) 1.5 10 ^3/uL (0.4-5.4); Lymphocytes % (auto) 18.2 % (10.0-50.0); Mean Corpuscular Hemoglobin 32.5 pg (28.0-32.0); Mean Corpuscular Hgb Conc. 34.1 g/dL (32.0-36.0); Mean Corpuscular Volume 95.3 fL (80.0-100.0); Monocytes # (auto) 0.5 10 ^3/uL (0-1.3); Monocytes % (auto) 5.8 % (0.0-12.0); Neutrophils # (auto) 6.1 10 ^3/uL (1.6-8.6); Neutrophils % (auto) 72.9 % (37.0-80.0); Nucleated Red Blood Cells % 0.1 %; Red Blood Cells 3.46 10^6/uL (4.5-5.90); White Blood Cell 8.4 10^3/uL (4.4-10.8)
[2023-11-26 06:24] LABS: Anion Gap 7 (5-15); Calcium 9.1 mg/dL (8.5-10.1); Carbon Dioxide 22 mmol/L (20-30); Chloride 111 mmol/L (98-107); Sodium 140 mmol/L (136-145)
[2023-11-26 06:29] LABS: Glucose 84 mg/dL (74-106)
[2023-11-26 06:30] LABS: BUN/Creatinine Ratio 9.9 (10.0-20.0); Blood Urea Nitrogen 13 mg/dL (9-23)
[2023-11-26] MEDS ORDERED: hydrALAZINE HCL 20 MG/ML VL IV PRN (14:45)
[2023-11-26] MEDS: cefTRIAXone 1GM/50ML D5W 50 ML IV SCH (20:28)
[2023-11-27 04:42] VITALS: BP 152/80; PULSE 75; RESP 20; TEMP 97.5; O2SAT 96
[2023-11-27 06:05] LABS: Basophils # (auto) 0 10 ^3/uL (0-0.2); Basophils % (auto) 0.5 % (0.0-2.0); Eosinophils # (auto) 0.2 10 ^3/uL (0-0.8); Eosinophils % (auto) 3.3 % (0.0-7.0); Hematocrit 35.1 % (41.0-53.0); Hemoglobin 11.7 g/dL (13.5-17.5); Lymphocytes # (auto) 1.5 10 ^3/uL (0.4-5.4); Lymphocytes % (auto) 20.4 % (10.0-50.0); Mean Corpuscular Hemoglobin 31.7 pg (28.0-32.0); Mean Corpuscular Hgb Conc. 33.3 g/dL (32.0-36.0); Mean Corpuscular Volume 95.1 fL (80.0-100.0); Monocytes # (auto) 0.4 10 ^3/uL (0-1.3); Monocytes % (auto) 6.2 % (0.0-12.0); Neutrophils % (auto) 69.6 % (37.0-80.0); Red Cell Distribution Width 13.1 % (11.8-14.3); White Blood Cell 7.2 10^3/uL (4.4-10.8)
[2023-11-27 06:11] LABS: INR 1.07 (0.9-1.15); Prothrombin Time 11.3 sec (9.3-11.8)
[2023-11-27 06:27] LABS: Alanine Aminotransferase 12 U/L (7-40); Albumin 3.7 g/dL (3.2-4.8); Alkaline Phosphatase 75 U/L (46-116); Anion Gap 9 (5-15); Aspartate Aminotransferase 17 U/L (13-40); BUN/Creatinine Ratio 8.1 (10.0-20.0); Blood Urea Nitrogen 10 mg/dL (9-23); Calcium 9.3 mg/dL (8.5-10.1); Carbon Dioxide 20 mmol/L (20-30); Chloride 111 mmol/L (98-107); Glucose 83 mg/dL (74-106); Magnesium 1.9 mg/dL (1.6-2.6); Potassium 3.7 mmol/L (3.5-5.1); Sodium 140 mmol/L (136-145)
[2023-11-27 06:28] LABS: Bilirubin, Total 0.3 mg/dL (0.2-1.0)
[2023-11-27 06:48] LABS: % Iron Saturation 20.3 % (20-55)
[2023-11-27 08:28] VITALS: BP 153/80; PULSE 73; RESP 18; TEMP 97.8; O2SAT 94
[2023-11-27] MEDS: METOPROLOL SUCCINATE XL 50 MG TAB PO SCH (10:16)
[2023-11-27] MEDS: LISINOPRIL 5 MG TAB PO SCH (10:17)
[2023-11-27 13:15] VITALS: BP 150/89; PULSE 75; RESP 16; TEMP 98.4; O2SAT 97
[2023-11-27 16:44] VITALS: BP 145/82; PULSE 59; RESP 18; TEMP 98.7; O2SAT 94
[2023-11-27 21:00] VITALS: BP 126/70; PULSE 75; RESP 14; TEMP 97.7; O2SAT 96
[2023-11-28] VITALS (7 sets, daily range): BP systolic 129–149; BP diastolic 73–84; PULSE 55–74; RESP 14–19; TEMP 97.9–98.4; O2SAT 94–98
[2023-11-28 06:58] LABS: Basophils # (auto) 0 10 ^3/uL (0-0.2); Basophils % (auto) 0.5 % (0.0-2.0); Eosinophils # (auto) 0.3 10 ^3/uL (0-0.8); Eosinophils % (auto) 4.1 % (0.0-7.0); Hematocrit 35.2 % (41.0-53.0); Hemoglobin 11.8 g/dL (13.5-17.5); Lymphocytes # (auto) 1.5 10 ^3/uL (0.4-5.4); Lymphocytes % (auto) 21.3 % (10.0-50.0); Mean Corpuscular Hemoglobin 31.8 pg (28.0-32.0); Mean Corpuscular Hgb Conc. 33.5 g/dL (32.0-36.0); Mean Corpuscular Volume 95.2 fL (80.0-100.0); Monocytes # (auto) 0.4 10 ^3/uL (0-1.3); Monocytes % (auto) 6.4 % (0.0-12.0); Neutrophils # (auto) 4.8 10 ^3/uL (1.6-8.6); Neutrophils % (auto) 67.7 % (37.0-80.0); Red Cell Distribution Width 13.4 % (11.8-14.3)
[2023-11-28 07:19] LABS: Albumin 3.4 g/dL (3.2-4.8); Alkaline Phosphatase 65 U/L (46-116); Anion Gap 8 (5-15); Aspartate Aminotransferase 17 U/L (13-40); BUN/Creatinine Ratio 6.4 (10.0-20.0); Bilirubin, Total 0.3 mg/dL (0.2-1.0); Blood Urea Nitrogen 8 mg/dL (9-23); Calcium 9.1 mg/dL (8.7-10.4); Carbon Dioxide 21 mmol/L (20-30); Chloride 110 mmol/L (98-107); Glucose 88 mg/dL (74-106); Potassium 3.8 mmol/L (3.5-5.1); Sodium 139 mmol/L (136-145); Total Protein 5.6 g/dL (5.7-8.2)
[2023-11-28 07:21] LABS: Alanine Aminotransferase < 9 U/L (7-40)
[2023-11-28] MEDS: metroNIDAZOLE 500 MG TAB PO SCH (22:06)
[2023-11-29 04:57] VITALS: BP 149/85; PULSE 76; RESP 18; TEMP 97.8; O2SAT 97
[2023-11-29 06:03] LABS: Basophils # (auto) 0 10 ^3/uL (0-0.2); Basophils % (auto) 0.5 % (0.0-2.0); Eosinophils # (auto) 0.2 10 ^3/uL (0-0.8); Eosinophils % (auto) 3.6 % (0.0-7.0); Hematocrit 32.1 % (41.0-53.0); Lymphocytes # (auto) 1.6 10 ^3/uL (0.4-5.4); Mean Corpuscular Hemoglobin 31.9 pg (28.0-32.0); Mean Corpuscular Hgb Conc. 34.2 g/dL (32.0-36.0); Mean Corpuscular Volume 93.2 fL (80.0-100.0); Monocytes # (auto) 0.5 10 ^3/uL (0-1.3); Monocytes % (auto) 6.9 % (0.0-12.0); Neutrophils # (auto) 4.3 10 ^3/uL (1.6-8.6); Red Blood Cells 3.44 10^6/uL (4.5-5.90); Red Cell Distribution Width 12.9 % (11.8-14.3); White Blood Cell 6.5 10^3/uL (4.4-10.8)
[2023-11-29 06:23] LABS: Albumin 3.6 g/dL (3.2-4.8); Alkaline Phosphatase 66 U/L (46-116); Anion Gap 9 (5-15); BUN/Creatinine Ratio 5.3 (10.0-20.0); Blood Urea Nitrogen 6 mg/dL (9-23); Calcium 8.9 mg/dL (8.5-10.1); Carbon Dioxide 20 mmol/L (20-30); Chloride 111 mmol/L (98-107); Glucose 87 mg/dL (74-106); Potassium 3.8 mmol/L (3.5-5.1); Sodium 140 mmol/L (136-145)
[2023-11-29 06:24] LABS: Aspartate Aminotransferase 17 U/L (13-40); Bilirubin, Total 0.2 mg/dL (0.2-1.0); Total Protein 5.7 g/dL (5.7-8.2)
[2023-11-29 06:26] LABS: Alanine Aminotransferase 9 U/L (7-40)
[2023-11-29 09:14] VITALS: BP 136/77; PULSE 76; RESP 20; TEMP 98.3; O2SAT 94
[2023-11-29 12:41] VITALS: BP 131/83; PULSE 75; RESP 20; TEMP 97.7; O2SAT 98
[2023-11-29] MEDS ORDERED: GADOTERATE MEG 10 MMOL/20ml INJ (0.5MMOL/ml) IV ONE (15:00)
[2023-11-29 16:43] VITALS: BP 128/81; PULSE 76; RESP 20; TEMP 98.1; O2SAT 96
[2023-11-29 20:00] VITALS: PULSE 75; RESP 18; O2SAT 98
[2023-11-29 21:00] VITALS: BP 126/78; PULSE 75; RESP 18; TEMP 97.8; O2SAT 98
[2023-11-30 01:00] VITALS: BP 137/74; PULSE 76; RESP 18; TEMP 98.2; O2SAT 97
[2023-11-30 05:00] VITALS: BP 130/72; PULSE 75; RESP 18; TEMP 98.6; O2SAT 96
[2023-11-30 05:20] LABS: Basophils # (auto) 0 10 ^3/uL (0-0.2); Basophils % (auto) 0.6 % (0.0-2.0); Eosinophils # (auto) 0.2 10 ^3/uL (0-0.8); Eosinophils % (auto) 3.5 % (0.0-7.0); Lymphocytes # (auto) 1.8 10 ^3/uL (0.4-5.4); Lymphocytes % (auto) 25.6 % (10.0-50.0); Mean Corpuscular Hemoglobin 32.1 pg (28.0-32.0); Mean Corpuscular Hgb Conc. 34.4 g/dL (32.0-36.0); Mean Corpuscular Volume 93.3 fL (80.0-100.0); Monocytes # (auto) 0.4 10 ^3/uL (0-1.3); Monocytes % (auto) 6.4 % (0.0-12.0); Neutrophils # (auto) 4.5 10 ^3/uL (1.6-8.6); Neutrophils % (auto) 63.9 % (37.0-80.0); Nucleated Red Blood Cells % 0.2 %; Red Blood Cells 3.44 10^6/uL (4.5-5.90)
[2023-11-30 05:37] LABS: Alanine Aminotransferase 10 U/L (7-40); Albumin 3.4 g/dL (3.2-4.8); Alkaline Phosphatase 62 U/L (46-116); Anion Gap 10 (5-15); Aspartate Aminotransferase 19 U/L (13-40); BUN/Creatinine Ratio 5.3 (10.0-20.0); Blood Urea Nitrogen 6 mg/dL (9-23); Carbon Dioxide 21 mmol/L (20-30); Chloride 110 mmol/L (98-107); Glucose 90 mg/dL (74-106); Potassium 3.6 mmol/L (3.5-5.1); Sodium 141 mmol/L (136-145)
[2023-11-30 05:38] LABS: Total Protein 5.3 g/dL (5.7-8.2)
[2023-11-30 05:55] LABS: Bilirubin, Total 0.2 mg/dL (0.2-1.0)
[2023-11-30] MEDS: LORazepam 2MG/ML-1ML VIAL IV ONE (08:39)
[2023-11-30 09:00] VITALS: BP 122/69; PULSE 75; RESP 17; TEMP 98.1; O2SAT 96
[2023-11-30 17:00] VITALS: BP 131/74; PULSE 75; RESP 18; TEMP 98; O2SAT 98
[2023-11-30 20:00] VITALS: PULSE 75; RESP 20; O2SAT 98
[2023-11-30 21:00] VITALS: BP 133/77; PULSE 75; RESP 20; TEMP 98; O2SAT 98
[2023-12-01 00:57] VITALS: BP 137/85; PULSE 77; RESP 16; TEMP 98; O2SAT 96
[2023-12-01 05:00] VITALS: BP 125/71; PULSE 76; RESP 20; TEMP 97.6; O2SAT 97
[2023-12-01 05:42] LABS: Basophils # (auto) 0 10 ^3/uL (0-0.2); Basophils % (auto) 0.7 % (0.0-2.0); Eosinophils # (auto) 0.2 10 ^3/uL (0-0.8); Eosinophils % (auto) 3.5 % (0.0-7.0); Hematocrit 33.4 % (41.0-53.0); Hemoglobin 11.4 g/dL (13.5-17.5); Lymphocytes # (auto) 1.7 10 ^3/uL (0.4-5.4); Mean Corpuscular Hemoglobin 32.1 pg (28.0-32.0); Mean Corpuscular Hgb Conc. 34.2 g/dL (32.0-36.0); Mean Corpuscular Volume 93.9 fL (80.0-100.0); Monocytes # (auto) 0.5 10 ^3/uL (0-1.3); Monocytes % (auto) 7.6 % (0.0-12.0); Neutrophils # (auto) 4.4 10 ^3/uL (1.6-8.6); Neutrophils % (auto) 63.2 % (37.0-80.0); Red Blood Cells 3.56 10^6/uL (4.5-5.90); White Blood Cell 6.9 10^3/uL (4.4-10.8)
[2023-12-01 05:59] LABS: Alanine Aminotransferase 13 U/L (7-40); Albumin 3.4 g/dL (3.2-4.8); Alkaline Phosphatase 63 U/L (46-116); Anion Gap 8 (5-15); Aspartate Aminotransferase 20 U/L (13-40); BUN/Creatinine Ratio 5.1 (10.0-20.0); Bilirubin, Total 0.2 mg/dL (0.2-1.0); Blood Urea Nitrogen 6 mg/dL (9-23); Carbon Dioxide 24 mmol/L (20-30); Chloride 109 mmol/L (98-107); Glucose 89 mg/dL (74-106); Potassium 3.7 mmol/L (3.5-5.1); Sodium 141 mmol/L (136-145); Total Protein 5.7 g/dL (5.7-8.2)
[2023-12-01 08:48] VITALS: BP 142/86; PULSE 75; RESP 18; TEMP 97.9; O2SAT 97
[2023-12-01] MEDS ORDERED: CIP500T GT (09:59)
[2023-12-01] MEDS ORDERED: METR-344 PO (09:59)
[2023-12-01 12:40] VITALS: BP 116/70; PULSE 74; RESP 16; TEMP 97.9; O2SAT 94
== END 2023-12-01 16:20 | disposition home or self-care (01) | DRG 393 ==
LOC: UNDOADMIN 21:10 → TELE-WESTW 21:10 → WEST WING 23:43
PROVIDERS: ADMIT Internal Medicine; ATTEND Internal Medicine
DX: K55.9 Vascular disorder of intestine, unspecified (principal); N17.0 Acute kidney failure with tubular necrosis; E78.5 Hyperlipidemia, unspecified; I12.9 Hypertensive chronic kidney disease with stage 1 through stage 4 chronic kidney disease, or unspecified chronic kidney disease; N18.32 Chronic kidney disease, stage 3b; I25.10 Atherosclerotic heart disease of native coronary artery without angina pectoris; E86.0 Dehydration; K21.9 Gastro-esophageal reflux disease without esophagitis; K57.30 Diverticulosis of large intestine without perforation or abscess without bleeding; K83.8 Other specified diseases of biliary tract; Z91.048 Other nonmedicinal substance allergy status; Z82.49 Family history of ischemic heart disease and other diseases of the circulatory system; Z87.19 Personal history of other diseases of the digestive system; Z79.899 Other long term (current) drug therapy
CPT/HCPCS: 36415; 74018; 74176; 74183; 76705; 76775; 78226; 80048; 80053; 81001; 82570; 82728; 83540; 83550; 83605; 83735; 84156; 84300; 84443; 85025; 85610; 85730; 86141; C9113; G0378; J3490

== ENCOUNTER → 2024-03-29 | Outpatient (CLI) | payer OTHER ==
[~2024-03-29] MED LIST changes: +B COCAP12 PO; +CETI10CA PO; +CHOL1TAB30 PO; +CIP500T GT; +METO-6 PO; +METR-344 PO
== END | disposition home or self-care (01) ==
LOC: Rad HDHVI 08:48
PROVIDERS: ATTEND Internal Medicine Cardiovascular Disease
DX: I50.42 Chronic combined systolic (congestive) and diastolic (congestive) heart failure (principal)
CPT/HCPCS: 93306

== ENCOUNTER → 2024-04-18 | Outpatient (CLI) | payer OTHER ==
[2024-04-18 11:21] LABS: Urine Bacteria None Seen /hpf (None Seen)
[2024-04-18 11:38] LABS: Urine Blood Negative /uL (Negative); Urine Clarity Clear (Clear); Urine Color Yellow (Yellow); Urine Mucus FEW (None Seen); Urine Protein, UAD TRACE (Negative); Urine Urobilinogen Normal (Negative); Urine WBC <1 /hpf (0 - 3); Urine pH 5.5 (5.0-9.0)
[2024-04-18 11:58] LABS: Basophils # (auto) 0.1 10 ^3/uL (0-0.2); Basophils % (auto) 0.8 % (0.0-2.0); Eosinophils # (auto) 0.4 10 ^3/uL (0-0.8); Hematocrit 38.8 % (41.0-53.0); Hemoglobin 13.3 g/dL (13.5-17.5); Lymphocytes # (auto) 1.9 10 ^3/uL (0.4-5.4); Lymphocytes % (auto) 26.7 % (10.0-50.0); Mean Corpuscular Hemoglobin 32.7 pg (28.0-32.0); Mean Corpuscular Hgb Conc. 34.2 g/dL (32.0-36.0); Mean Corpuscular Volume 95.5 fL (80.0-100.0); Monocytes # (auto) 0.4 10 ^3/uL (0-1.3); Monocytes % (auto) 5.9 % (0.0-12.0); Neutrophils # (auto) 4.3 10 ^3/uL (1.6-8.6); Neutrophils % (auto) 60.6 % (37.0-80.0); Platelet Count (auto) 243 10^3/uL (140-450); Red Blood Cells 4.07 10^6/uL (4.5-5.90); Red Cell Distribution Width 12.9 % (11.8-14.3); White Blood Cell 7.2 10^3/uL (4.4-10.8)
[2024-04-18 12:44] LABS: Protein, Urine 21.6 mg/dL (1-14)
[2024-04-18 12:46] LABS: Potassium 4.4 mmol/L (3.5-5.1)
[2024-04-18 12:47] LABS: Creatinine, Urine 134.17 mg/dL (30.0-125.0); Urine Protein/Creatinine Ratio 0.16
[2024-04-18 12:48] LABS: Calcium 9.6 mg/dL (8.7-10.4)
[2024-04-18 12:52] LABS: BUN/Creatinine Ratio 12.7 (10.0-20.0)
[2024-04-18 12:54] LABS: Albumin 4.2 g/dL (3.2-4.8)
[2024-04-18 12:55] LABS: Phosphorus 2.9 mg/dL (2.4-5.1)
[2024-04-18 13:04] LABS: Uric Acid 6.3 mg/dL (3.7-9.2)
== END | disposition home or self-care (01) ==
LOC: LAB 11:08
PROVIDERS: ATTEND Internal Medicine
DX: M10.9 Gout, unspecified (principal); E56.9 Vitamin deficiency, unspecified; N18.30 Chronic kidney disease, stage 3 unspecified
CPT/HCPCS: 36415; 80069; 81001; 82306; 82570; 83970; 84156; 84550; 85025

== ENCOUNTER → 2024-07-06 | Outpatient (CLI) | payer OTHER | END | disposition home or self-care (01) | LOC: LAB 11:05 | PROVIDERS: ATTEND Internal Medicine Cardiovascular Disease | DX: Z51.81 Encounter for therapeutic drug level monitoring (principal); Z79.899 Other long term (current) drug therapy | CPT/HCPCS: 36415; 80162 ==

== ENCOUNTER → 2024-08-20 | Outpatient (CLI) | payer OTHER | END | disposition home or self-care (01) | LOC: LAB 12:32 | PROVIDERS: ATTEND Internal Medicine Cardiovascular Disease | DX: I48.91 Unspecified atrial fibrillation (principal) | CPT/HCPCS: 36415; 80162 ==

== ENCOUNTER → 2024-08-29 | Outpatient (CLI) | payer OTHER | END | disposition home or self-care (01) | LOC: LAB 13:41 | PROVIDERS: ATTEND Urology | DX: C67.9 Malignant neoplasm of bladder, unspecified (principal); Z85.51 Personal history of malignant neoplasm of bladder ==

== ENCOUNTER → 2024-09-13 | Outpatient (CLI) | payer OTHER | END | disposition home or self-care (01) | LOC: LAB 10:26 | PROVIDERS: ATTEND Urology | DX: Z12.6 Encounter for screening for malignant neoplasm of bladder (principal) ==

== ENCOUNTER 2024-10-11 17:03 | Inpatient (IN) | payer MEDICARE, OTHER ==
[~2024-10-11] VITALS: Ht 185.4 cm; Wt 82.8 kg
--- NOTE | 2024-10-11 17:25 | ED.PDOC ---
History of Present Illness HPI Comments 79 y/o M, with a history of CAD, CKF III, PTSD, PTCA, and pacemaker, presents with for acute stroke, today. Patient is reported to have been sent to ED for hospital admission under advice of his neurologist, Isaac Khan MD, after recent outpatient MRI showed positive acute/subacute intracranial infarct of the left-hemisphere, today. Patient is reported to have had MRI performed after receiving cardiology clearance to r/o stroke following previous ED visit at [facility] for initial c/o right-sided weakness 1x week ago. stated on facility informing her on patient having no indication of stroke through testing methods and leaving AMA to f/u with PCP through outpatient care then. Patient's weakness symptoms is stated to have improved since initial onset. At time of initial assessment, neurological evaluation is limited, due to patient being incapacitated in a wheelchair after being given 2x doses of Xanax for managing his PTSD prior to MRI scan. I discussed the patient's MRI results with Dr. Khan. He requested that we admit the patient. Time Seen by MD: 17:00 Primary Care Provider: JAIRO Reviewed Notes: Nurses Notes, Medications, Allergies Allergies: Coded Allergies: Latex (Verified Allergy, Unknown, 06/14/22) Uncoded Allergies: Adhesive tape (Allergy, Mild, Rash, 11/09/23) Home Meds Active Scripts Ciprofloxacin Hydrochloride (Ciprofloxacin HCl) 500 Mg Tab, 500 MG GT BID for 5 Days, #10 TAB Prov:KATHY LEE RESIDENT 12/01/23 Metronidazole (Flagyl) 500 Mg Tab, 500 MG PO BID for 5 Days, #10 TAB Prov:KATHY LEE RESIDENT 12/01/23 Reported Medications Metoprolol Succinate (Toprol Xl) 50 Mg Tab, 50 MG PO, TAB 11/24/23 Cholecalciferol (Gnp Vitamin D) 1,000 Unit Tab, 2000 UNIT PO DAILY, TAB 11/24/23 Cetirizine Hcl (Zyrtec Allergy) 10 Mg Cap, 10 MG PO DAILY, CAP 11/24/23 B Complex W/ C (B COMPLEX/VITAMIN C) Vit C Cap, 1 C PO, CAP 11/24/23 Pantoprazole Sodium Sesquihydr (Pantoprazole Sodium) 40 Mg Tab, 20 MG PO QAM for GERD 10/19/23 Docusate Sodium (Docusate Sodium) 250 Mg Cap, 1 CAP PO BID for CONSTIPATION 10/19/23 Cholecalciferol (Vitamin D3 Fast Dissolve) 50 Mcg Tab, 1 TAB PO DAILY for SUPPLEMENT 10/19/23 Atorvastatin Calcium (Lipitor) 20 Mg Tab, 1 TAB PO QPM for HIGH CHOLESTEROL 10/19/23 Lisinopril (Lisinopril) 5 Mg Tab, 1 TAB PO EOD for HYPERTENSION 10/19/23 Metoprolol Succinate (Metoprolol Succinate Er) 50 Mg Tab, 1 TAB PO BID for HYPERTENSION 07/05/23 Hydrocodone-Acetaminophen (Hydrocodone Bitartrate/AC 10-325 mg) 1 Tab Tab, 1 TAB PO QPM PRN for MODERATE PAIN (4-6 PAIN SCALE) 06/14/22 Cetirizine Hcl (ZYRTEC ALLERGY) 10 Mg Tab, 1 TAB PO QPM for ALLERGIES 05/04/21 Multiple Vitamin (Multivitamins) Tab, 1 TAB PO DAILY for SUPPLEMENT 05/04/21 Sucralfate (Sucralfate) 1 Gm Tab, 1 GM PO QPM for ULCER PREVENTION 03/06/20 Amiodarone Hcl (Amiodarone Hcl) 200 Mg Tab, 1 TAB PO QAM for ARRYTHMIA 10/24/18 Rivaroxaban (Xarelto Tablet) 15 Mg Tb, 1 TAB PO DAILY for CAD 10/24/18 Information Source: Patient, Spouse Mode of Arrival: Wheelchair Severity: Moderate Timing: Hours Duration: Since onset Prehospital treatment: Other (see HPI) Past Medical History PAST MEDICAL HISTORY: CAD, CKF (stage III), HTN, TIA Past Medical History (Other): PTSD Surgical History: Pacemaker, PTCA Family History Family History: Reviewed,noncontributory to illness Social History Smoker: Quit Greater Than 1 Year Alcohol: Denies ETOH Use Drugs: Denies Drug Use Lives In: Home Constitutional: reports: fatigue, weakness; denies: chills, diaphoresis, fever, malaise, sweats, others EENTM: denies: blurred vision, double vision, ear bleeding, ear discharge, ear drainage, ear pain, ear ringing, eye pain, eye redness, hearing loss, mouth pain, mouth swelling, nasal discharge, nose bleeding, nose congestion, nose pain, photophobia, tearing, throat pain, throat swelling, voice changes, others Respiratory: denies: cough, hemoptysis, orthopnea, SOB at rest, shortness of breath, SOB with excertion, stridor, wheezing, others Cardiovascular: denies: chest pain, dizzy spells, diaphoresis, Dyspnea on exertion, edema, irregular heart beat, left arm pain, lightheadedness, palpitations, PND, syncope, others Gastrointestinal: denies: abdomen distended, abdominal pain, blood streaked bowels, constipated, diarrhea, dysphagia, difficulty swallowing, hematemesis, melena, nausea, poor appetite, poor fluid intake, rectal bleeding, rectal pain, vomiting, others Genitourinary: denies: burning, dysuria, flank pain, frequency, hematuria, incontinence, penile discharge, penile sore, pain, testicle pain, testicle swelling, urgency, others Neurological: reports: dizziness, weakness; denies: fainting, headache, left sided numbness, left sided weakness, numbness, paresthesia, pre-existing deficit, right sided numbness, right sided weakness, seizure, speech problems, tingling, tremors, others Musculoskeletal: denies: back pain, gout, joint pain, joint swelling, muscle pain, muscle stiffness, neck pain, others Integumetry: denies: bruises, change in color, change in hair/nails, dryness, laceration, lesions, lumps, rash, wounds, others Allergic/Immunocompromised: denies: Difficulty Healing, Frequent Infections, Hives, Itching, others Hematologic/Lymphatic: denies: anemia, blood clots, easy bleeding, easy bruising, swollen glands, others Endocrine: denies: excessive hunger, excessive sweating, excessive thirst, excessive urination, flushing, intolerance to cold, intolerance to heat, unexplained weight gain, unexplained weight loss, others Psychiatric: denies: anxiety, bipolar disorder, depression, hopeless, panic disorder, schizophrenia, sleepless, suicidal, others Unable to Obtain due to: Altered Mental Status (Due to his encephalopathy event.) All Other Systems: Reviewed and Negative (Comprehensive systems review obtained and negative except for what is stated in the HPI.) Physical Exam General Appearance: Moderate Distress (Patient was minimally responsive which may have been due to the Ativan dosage prior to his MRI evaluation. Patient did not display any signs of facial drooping.), Normal HEENT: Normal ENT Inspection, Pharynx Normal, TMs Normal Neck: Full Range of Motion, Non-Tender, Normal, Normal Inspection Respiratory: Chest Non-Tender, Lungs Clear, No Accessory Muscle Use, No Respiratory Distress, Normal Breath Sounds Cardiovascular: No Edema, No JVD, No Murmur, No Gallop, Normal Peripheral Pulses, Regular Rate/Rhythm Breast Exam: Deferred Gastrointestinal: No Organomegaly, Non Tender, No Pulsatile Mass, Normal Bowel Sounds, Soft Genitalia: Deferred Pelvic: Deferred Rectal: Deferred Extremities: Other (Unable to perform and he physical evaluation tests due to his benzodiazepine use today.) Neurologic: NOT DONE Cerebellar Function: NOT DONE Reflexes: NOT DONE Skin: Dry, Normal Color, Warm Lymphatic: No Adenopathy Was a procedure done? Was a procedure done?: No Differential Dx Considerations may include: acute/subacute intracranial infarct , TIA X-Ray, Labs, Meds, VS Vital Signs Date Time Temp Pulse Resp B/P (MAP) Pulse Ox O2 Delivery O2 Flow Rate FiO2 10/11/24 19:59 70 17 99 Room Air* 0 21 10/11/24 19:58 98.2 70 19 120/70 (87) 100 98.2 10/11/24 18:17 70 10/11/24 18:15 69 13 96 Room Air* 0 21 10/11/24 18:15 98.7 69 13 114/70 (85) 96 98.7 10/11/24 17:40 70 10/11/24 17:04 98.7 70 16 120/76 (91) 95 98.7 Lab Test 10/11/24 19:56 10/11/24 18:35 10/11/24 17:22 Range/Units Troponin I High Sensitivity 10 3 L </=54 ng/L White Blood Count 6.9 4.4-10.8 10^3/uL Red Blood Count 4.26 L 4.5-5.90 10^6/uL Hemoglobin 13.5 13.5-17.5 g/dL Hematocrit 40.5 L 41.0-53.0 % Mean Corpuscular Volume 94.9 80.0-100.0 fL Mean Corpuscular Hemoglobin 31.8 28.0-32.0 pg Mean Corpuscular Hemoglobin Concent 33.5 32.0-36.0 g/dL Red Cell Distribution Width 13.2 11.8-14.3 % Platelet Count 273 140-450 10^3/uL Mean Platelet Volume 7.2 6.9-10.8 fL Neutrophils (%) (Auto) 53.5 37.0-80.0 % Lymphocytes (%) (Auto) 31.4 10.0-50.0 % Monocytes (%) (Auto) 7.6 0.0-12.0 % Eosinophils (%) (Auto) 6.4 0.0-7.0 % Basophils (%) (Auto) 1.1 0.0-2.0 % Neutrophils # (Auto) 3.7 1.6-8.6 10 ^3/uL Lymphocytes # (Auto) 2.2 0.4-5.4 10 ^3/uL Monocytes # (Auto) 0.5 0-1.3 10 ^3/uL Eosinophils # (Auto) 0.4 0-0.8 10 ^3/uL Basophils # (Auto) 0.1 0-0.2 10 ^3/uL Nucleated Red Blood Cells 0.2 % Prothrombin Time 11.9 H 9.3-11.8 sec Prothrombin Time INR 1.14 0.9-1.15 Sodium Level 136 136-145 mmol/L Potassium Level 4.7 3.5-5.1 mmol/L Chloride Level 104 98-107 mmol/L Carbon Dioxide Level 24 20-31 mmol/L Anion Gap 8 5-15 Blood Urea Nitrogen 18 9-23 mg/dL Creatinine 1.32 H 0.700-1.30 mg/dL Glomerular Filtration Rate Calc 55 >90 mL/min BUN/Creatinine Ratio 13.6 10.0-20.0 Serum Glucose 92 74-106 mg/dL Lactic Acid Level 1.1 0.4-2.0 mmol/L Calcium Level 10.1 8.7-10.4 mg/dL Total Bilirubin 0.2 0.2-1.0 mg/dL Aspartate Amino Transferase (AST) 24 13-40 U/L Alanine Aminotransferase (ALT) 20 7-40 U/L Alkaline Phosphatase 85 46-116 U/L Total Protein 6.8 5.7-8.2 g/dL Albumin 4.3 3.2-4.8 g/dL Lipase 30 12-53 U/L POC Glucose 101 70-106 mg/dl [facility] [address] [address] [place] [id number] Ph: [phone] DIAGNOSTIC IMAGING Diagnostic Imaging Report : [id number] Signed PATIENT: SABRA OLIVER ACCT: [id number] UNIT: [id number] : 1945 LOC: MRI ROOM / BED: / AGE / SEX: 79 / M ADM STATUS: REG CLI SERVICE [id number] ORDERING PHYSICIAN: DEVIN DEE DNP PROCEDURE(s): MBHL - BRAIN HEAD WO CONTRAST REASON: TIA ORDER NUMBER(s): [id number], ACCESSION NUMBER(s): [id number] PROCEDURE: MRI BRAIN HEAD WO CONTRAST INDICATION: TIA EXAM DATE: 10/11/2024 04:03 PM COMPARISON: None TECHNIQUE: MRI of the brain without intravenous contrast. FINDINGS: Small focus of restricted diffusion in the left peralta radiata with associated FLAIR signal abnormality consistent with an acute / subacute infarct. There is no evidence of acute intracranial hemorrhage, extra-axial collection, mass effect, midline shift, herniation or hydrocephalus. The ventricles, sulci and cisterns appear age appropriate. There are no signal abnormalities on the susceptibility weighted sequences. The major vascular flow voids are present. Air-fluid level in the right maxillary sinus. The surrounding soft tissues and osseous structures are unremarkable. IMPRESSION: 1. Acute/subacute infarct in the left peratla radiata. Clinical correlation and continued follow-up is recommended. Right maxillary sinus disease. Critical Result: Stroke Alert Findings discussed with medical assist Madelin at 10/11/2024 04:38 PM, and acknowledged receipt and understanding of the findings. She reported patient had been sent to the emergency department for further management. HS:Y ATED BY: RAFY DODGE MD DICTATED DATE/TIME: 10/11/241650 SIGNED BY: RAFY DODGE MD SIGNED DATE/TIME: 10/11/241650 CC: X-Ray, Labs, Meds, VS Comment All labs performed the ED were evaluated by me personally. Serum laboratories were unremarkable for any definitive systemic concerns. MRI revealed an acute on subacute infarct in the left peralta radiata. Maxillary sinus disease. Patient will be admitted for his current encephalopathy and subacute stroke event. At time of discussing the admission with the family of the patient, patient had improved from arrival and was conversational with some [id number] cognition and speech and impediments. Time of 1ST Reevaluation: 20:58 Reevaluation 1ST: Improved Consultation: PCP, Neurology Patient Education/Counseling: Diagnosis, Treatment, Other (see HPI) Family Education/Counseling: Diagnosis, Treatment Departure 1 Departure Time of Disposition: 21:00 Impression: Primary Impression: Stroke Disposition: ADMITTED INPATIENT Condition: Fair Discharged With: Self, Spouse Critical Care Note Critical Care Time?: Yes (45 min-critical care time only) Critical care comment: Due to the high probability of a clinically significant and possibly life- threatening deterioration, the patient required my highest level of preparedness to intervene emergently and therefore, I personally provided 45 minutes of cr itical care time exclusive of time spent on separate billable procedures. This critical care time includes, but is not limited to, obtaining additional history, re-examination of the patient, evaluation of pulse oximetry, ordering and reviewing of studies as well as arranging urgent treatment with the development of a management plan. Continued, recurrent evaluation of the patien t's response to treatment as well as frequent reassessments and discussions with other providers. Stability Stability form required: No Heart Score Heart Score: Heart Score Response (Comments) Value History Slightly Suspicious [address]-Deviation 2 Age >65 2 Risk Factors 1 or 2 risk factors 1 Troponin Normal limit 0 Total 5 I personally scribed for IRINEO ISLAS PAC ([email or web address]) on 10/11/24 at 17:25. Electronically submitted by Kaushal Bullard ([email or web address]). IRINEO ISLAS PAC Oct 11, 2024 17:25
[2024-10-11 18:15] VITALS: PULSE 69; RESP 13; O2SAT 96
[2024-10-11 19:03] LABS: Basophils # (auto) 0.1 10 ^3/uL (0-0.2); Basophils % (auto) 1.1 % (0.0-2.0); Eosinophils # (auto) 0.4 10 ^3/uL (0-0.8); Eosinophils % (auto) 6.4 % (0.0-7.0); Hematocrit 40.5 % (41.0-53.0); Hemoglobin 13.5 g/dL (13.5-17.5); Lymphocytes # (auto) 2.2 10 ^3/uL (0.4-5.4); Lymphocytes % (auto) 31.4 % (10.0-50.0); Mean Corpuscular Hemoglobin 31.8 pg (28.0-32.0); Mean Corpuscular Hgb Conc. 33.5 g/dL (32.0-36.0); Mean Corpuscular Volume 94.9 fL (80.0-100.0); Monocytes # (auto) 0.5 10 ^3/uL (0-1.3); Monocytes % (auto) 7.6 % (0.0-12.0); Neutrophils # (auto) 3.7 10 ^3/uL (1.6-8.6); Neutrophils % (auto) 53.5 % (37.0-80.0); Nucleated Red Blood Cells % 0.2 %; Platelet Count (auto) 273 10^3/uL (140-450); Red Blood Cells 4.26 10^6/uL (4.5-5.90); Red Cell Distribution Width 13.2 % (11.8-14.3); White Blood Cell 6.9 10^3/uL (4.4-10.8)
[2024-10-11 19:16] LABS: INR 1.14 (0.9-1.15); Prothrombin Time 11.9 sec (9.3-11.8)
[2024-10-11 19:18] LABS: Alanine Aminotransferase 20 U/L (7-40); Albumin 4.3 g/dL (3.2-4.8); Alkaline Phosphatase 85 U/L (46-116); Anion Gap 8 (5-15); Aspartate Aminotransferase 24 U/L (13-40); BUN/Creatinine Ratio 13.6 (10.0-20.0); Blood Urea Nitrogen 18 mg/dL (9-23); Calcium 10.1 mg/dL (8.7-10.4); Carbon Dioxide 24 mmol/L (20-31); Chloride 104 mmol/L (98-107); Glucose 92 mg/dL (74-106); Lipase 30 U/L (12-53); Potassium 4.7 mmol/L (3.5-5.1); Total Protein 6.8 g/dL (5.7-8.2)
[2024-10-11 19:28] LABS: Bilirubin, Total 0.2 mg/dL (0.2-1.0); Sodium 136 mmol/L (136-145)
[2024-10-11 19:59] VITALS: PULSE 70; RESP 17; O2SAT 99
--- NOTE | 2024-10-11 19:59 | DVHINCON2 ---
Date of service: Oct 11, [address] Blum Reason for Consultation Altered mental status/acute on chronic stroke History of Present Illness Mr. Robles is a 79 years old right-handed gentleman with a history of hypertension, coronary artery disease, abdominal aorta aneurysm, chronic kidney failure, diverticulosis, PTSD, overweight, he was advised to come to the ER for stroke I was called by our MRI center because they could not reach other doctors, and his MR brain scan showed evidence of subacute stroke. After reviewing the films , I decided to bring patient to the emergency room for further evaluation At that time, the patient was sedated with benzo he received before the MRI scan. The history obtained from his and daughter On 10/03/2024, he was alone at home and noticed the weakness and numbness/tingling in the right arm, he also felt confused or disoriented. After found talking to his , he was brought to the [facility] Emergency room, but he left AMA after some blood tests and CT head. But his problems persist, and he was seen by his primary care doctor on 10/10/2024, and he was recommended to have MR brain scan on 10/11/2024. He has had no stroke previously He snores, but not bad, CBC, 10/11/2024: Unremarkable BUN/CR, 10/11/2024: 18/1.32 GFR, 10/11/2024: 55 Liver function tests, 10/11/2024: Normal MRI headache, 10/11/2024: Acute/subacute infarct in the left peralta radiata. Clinical correlation and continued follow-up is recommended. Right maxillary sinus disease. Past Medical History Hypertension, coronary artery disease, abnormal aorta aneurysm, chronic kidney failure, PTSD Past Surgical History Pacemaker insertion, PTCA Family History: Cardiovascular disease G8 MOTHER G8 SISTER Prostate problems G8 FATHER Family History Cancer, heart disease Social History He was tobacco smoke, but no history of alcohol or recreational substance abuse Allergies: Coded Allergies: Latex (Verified Allergy, Unknown, 06/14/22) Uncoded Allergies: Adhesive tape (Allergy, Mild, Rash, 11/09/23) Home Meds Active Scripts Ciprofloxacin Hydrochloride (Ciprofloxacin HCl) 500 Mg Tab, 500 MG GT BID for 5 Days, #10 TAB Prov:KATHY LEE RESIDENT 12/01/23 Metronidazole (Flagyl) 500 Mg Tab, 500 MG PO BID for 5 Days, #10 TAB Prov:KATHY LEE RESIDENT 12/01/23 Reported Medications Metoprolol Succinate (Toprol Xl) 50 Mg Tab, 50 MG PO, TAB 11/24/23 Cholecalciferol (Gnp Vitamin D) 1,000 Unit Tab, 2000 UNIT PO DAILY, TAB 11/24/23 Cetirizine Hcl (Zyrtec Allergy) 10 Mg Cap, 10 MG PO DAILY, CAP 11/24/23 B Complex W/ C (B COMPLEX/VITAMIN C) Vit C Cap, 1 C PO, CAP 11/24/23 Pantoprazole Sodium Sesquihydr (Pantoprazole Sodium) 40 Mg Tab, 20 MG PO QAM for GERD 10/19/23 Docusate Sodium (Docusate Sodium) 250 Mg Cap, 1 CAP PO BID for CONSTIPATION 10/19/23 Cholecalciferol (Vitamin D3 Fast Dissolve) 50 Mcg Tab, 1 TAB PO DAILY for SUPPLEMENT 10/19/23 Atorvastatin Calcium (Lipitor) 20 Mg Tab, 1 TAB PO QPM for HIGH CHOLESTEROL 10/19/23 Lisinopril (Lisinopril) 5 Mg Tab, 1 TAB PO EOD for HYPERTENSION 10/19/23 Metoprolol Succinate (Metoprolol Succinate Er) 50 Mg Tab, 1 TAB PO BID for HYPERTENSION 07/05/23 Hydrocodone-Acetaminophen (Hydrocodone Bitartrate/AC 10-325 mg) 1 Tab Tab, 1 TAB PO QPM PRN for MODERATE PAIN (4-6 PAIN SCALE) 06/14/22 Cetirizine Hcl (ZYRTEC ALLERGY) 10 Mg Tab, 1 TAB PO QPM for ALLERGIES 05/04/21 Multiple Vitamin (Multivitamins) Tab, 1 TAB PO DAILY for SUPPLEMENT 05/04/21 Sucralfate (Sucralfate) 1 Gm Tab, 1 GM PO QPM for ULCER PREVENTION 03/06/20 Amiodarone Hcl (Amiodarone Hcl) 200 Mg Tab, 1 TAB PO QAM for ARRYTHMIA 10/24/18 Rivaroxaban (Xarelto Tablet) 15 Mg Tb, 1 TAB PO DAILY for CAD 10/24/18 Review of Systems As above, the other systems are negative Vital Signs Vital Signs Date Time Temp Pulse Resp B/P (MAP) Pulse Ox O2 Delivery O2 Flow Rate FiO2 10/11/24 18:17 70 10/11/24 18:15 13 96 Room Air* 0 21 10/11/24 18:15 98.7 114/70 (85) 98.7 Physical Exam GENERAL EXAM: General: the patient is well developed and nourished. No acute distress. HEENT: Normocephalic, neck is supple, no carotid bruits. No mass. RESPIRATORY: Normal respiratory effort with symmetrical lung expansion. Lungs clear to auscultation. CARDIOVASCULAR: Regular rate and rhythm with no murmurs. S1, S2. ABDOMEN: Soft, nontender, normal bowel sound NEUROLOGICAL: MENTAL STATUS: HPI SPEECH, LANGUAGE, HIGHER CORTICAL FUNCTION: no aphasia or dysathria. CRANIAL NERVES: #2: Intact visual grimm to confrontation. #3,4,6: Pupils are equal, round and reactive. EOMs full and conjugate. No nystagmus. #5: Facial sensation intact in all three divisions bilaterally. Mandibular strength intact. #7: Facial muscles symmetrical and strength intact. #8: Hard of hearing #9,10: Deferred #11: Trapezius and sternomastoid strength intact bilaterally. #12: Tongue midline. No fasciculations or atrophy. SENSATION: Sensation to touch and pinprick is normal. MOTOR: Normal tone in the upper and lower extremity. Normal muscle bulk. No fasciculations. No abnormal movements or posturing. Muscle strength of the major groups in the upper extremities is 4-5/5 weaker in the right arm. He was can move both legs REFLEXES: Deep tendon reflexes are symmetrical. No pathological reflexes. CEREBELLAR/COORDINATION: Deferred GAIT/STATION: deferred. Labs/Diagnostic Data Labs Test 10/11/24 18:35 10/11/24 17:22 Range/Units White Blood Count 6.9 4.4-10.8 10^3/uL Red Blood Count 4.26 L 4.5-5.90 10^6/uL Hemoglobin 13.5 13.5-17.5 g/dL Hematocrit 40.5 L 41.0-53.0 % Mean Corpuscular Volume 94.9 80.0-100.0 fL Mean Corpuscular Hemoglobin 31.8 28.0-32.0 pg Mean Corpuscular Hemoglobin Concent 33.5 32.0-36.0 g/dL Red Cell Distribution Width 13.2 11.8-14.3 % Platelet Count 273 140-450 10^3/uL Mean Platelet Volume 7.2 6.9-10.8 fL Neutrophils (%) (Auto) 53.5 37.0-80.0 % Lymphocytes (%) (Auto) 31.4 10.0-50.0 % Monocytes (%) (Auto) 7.6 0.0-12.0 % Eosinophils (%) (Auto) 6.4 0.0-7.0 % Basophils (%) (Auto) 1.1 0.0-2.0 % Neutrophils # (Auto) 3.7 1.6-8.6 10 ^3/uL Lymphocytes # (Auto) 2.2 0.4-5.4 10 ^3/uL Monocytes # (Auto) 0.5 0-1.3 10 ^3/uL Eosinophils # (Auto) 0.4 0-0.8 10 ^3/uL Basophils # (Auto) 0.1 0-0.2 10 ^3/uL Nucleated Red Blood Cells 0.2 % Prothrombin Time 11.9 H 9.3-11.8 sec Prothrombin Time INR 1.14 0.9-1.15 Sodium Level 136 136-145 mmol/L Potassium Level 4.7 3.5-5.1 mmol/L Chloride Level 104 98-107 mmol/L Carbon Dioxide Level 24 20-31 mmol/L Anion Gap 8 5-15 Blood Urea Nitrogen 18 9-23 mg/dL Creatinine 1.32 H 0.700-1.30 mg/dL Glomerular Filtration Rate Calc 55 >90 mL/min BUN/Creatinine Ratio 13.6 10.0-20.0 Serum Glucose 92 74-106 mg/dL Lactic Acid Level 1.1 0.4-2.0 mmol/L Calcium Level 10.1 8.7-10.4 mg/dL Total Bilirubin 0.2 0.2-1.0 mg/dL Aspartate Amino Transferase (AST) 24 13-40 U/L Alanine Aminotransferase (ALT) 20 7-40 U/L Alkaline Phosphatase 85 46-116 U/L Troponin I High Sensitivity 3 L </=54 ng/L Total Protein 6.8 5.7-8.2 g/dL Albumin 4.3 3.2-4.8 g/dL Lipase 30 12-53 U/L POC Glucose 101 70-106 mg/dl Assessment Acute left upper extremity weakness paresthesia secondary to acute stroke Acute stroke Plan/Recommendation Monitoring Supportive treatment Telemetry DVT profile UDS Carotid Doppler Echocardiogram Aspirin 81 mg daily Lipitor 40 mg daily Plavix 75 mg daily for 21 days Physical therapy More recommendation per clinical course Progress: Poor This medical document was created using an electronic medical record system with [employer] dictation system. Although this document has been carefully reviewed, there may still be some phonetic and typographical errors. These areas are purely typographical due to imperfections of the software programs, and do not reflect any compromise in the patient's medical care. Plan discussed with: Spouse, Daughter, Other NONA POWERS MD Oct 11, 2024 19:59
[2024-10-11 21:11] LABS: Urine Bacteria None Seen /hpf (None Seen)
[2024-10-11 21:33] LABS: Urine Blood Negative /uL (Negative); Urine Clarity Clear (Clear); Urine Color Colorless (Yellow); Urine Protein, UAD Negative (Negative); Urine Specific Gravity 1.007 (1.001-1.035); Urine Squamous Epithelial Cell None Seen /hpf (<5); Urine Urobilinogen Normal (Negative); Urine WBC < 1 /HPF (0-3); Urine pH 5.5 (5.0-9.0)
[2024-10-11 21:47] LABS: LDL Cholesterol 74 mg/dL (< 100)
[2024-10-11 21:49] LABS: Cholesterol 130 mg/dL (< 200); HDL Cholesterol 33 mg/dL (40-59); Triglycerides 193 mg/dL (< 150)
--- NOTE | 2024-10-11 22:22 | DVH ---
US CAROTID DOPPLER CLINICAL INDICATION: CVA hyperlipidemia, high blood pressure, history of smoking TECHNIQUE: Multiple grayscale, color Doppler and spectral Doppler ultrasound images were obtained thr oughout both carotid systems. COMPARISON: CAROTID DUPLX W COLOR DOP on DOS: 07/07/21 FINDINGS: RIGHT: CCA PSV: 67 cm/s ECA PSV: 72 cm/s ICA PSV: 82 cm/s ICA EDV: 31 cm/s ICA/CCA Ratio: Less than 2 Vertebral artery: Patent, antegrade flow. Grayscale images demonstrate mild calcified plaque at the carotid bifurcation. No visible stenosis. Spectral analysis demonstrates no hemodynamically significant CCA or ICA stenosis. LEFT: CCA PSV: 59 cm/s ECA PSV: 64 cm/s ICA PSV: 97 cm/s ICA EDV: 34 cm/s ICA/CCA Ratio: Less than 2 Vertebral artery: Patent, antegrade flow. Grayscale images demonstrate mild calcified plaque of the carotid bifurcation and proximal ICA. No v isible stenosis. Spectral analysis demonstrates no hemodynamically significant CCA or ICA stenosis. IMPRESSION: No evidence of hemodynamically significant CCA or ICA stenosis.
[2024-10-11] MEDS ORDERED: ACETAMINOPHEN 325 MG TAB PO PRN (22:30)
[2024-10-11] MEDS ORDERED: ONDANSETRON HCL 4 MG/2 ML VIAL IV PRN (22:30)
[2024-10-11] MEDS ORDERED: ATORVASTATIN 20 MG TAB PO SCH (23:00)
[2024-10-11] MEDS: CLOPIDOGREL BISULFATE 75 MG TAB PO ONE (23:21)
[2024-10-11] MEDS: ASPirin 81 mg TAB PO SCH (23:22)
--- NOTE | 2024-10-12 01:10 | DVHHP2 ---
History of Present Illness Reason for Visit: Right-sided weakness History of Present Illness 79-year-old male presents for evaluation of right-sided weakness. Patient reports a one-week history of developing right arm weakness. He states that yesterday he was seen by his mat gauger order a stat MRI of the brain. The MRI resulted in an acute/subacute nonhemorrhagic stroke. Dr. Khan Nephrology advised patient to present for admission for further evaluation. Patient reports symptoms have significantly improved over the past one-week. Denies headache, blurred vision or slurred speech. Past Medical History Chronic kidney disease, hypertension, CAD Past Surgical History Pacemaker PTCA Family History Noncontributory Smoke: No ALCOHOL: none Drugs: None Lives: with Family Review of Systems Review of Systems Review of systems are currently negative otherwise addressed in HPI. Allergies: Coded Allergies: Latex (Verified Allergy, Unknown, 06/14/22) Uncoded Allergies: Adhesive tape (Allergy, Mild, Rash, 11/09/23) Medications Current Medications Medications Dose Ordered Sig/Lou Route Start Time Stop Time Status Last Admin Dose Admin Aspirin 81 mg DAILY PO 10/11/24 23:00 10/11/24 23:22 81 MG Clopidogrel Bisulfate 75 mg DAILY PO 10/12/24 10:00 10/31/24 23:00 Amiodarone HCl 200 mg DAILY PO 10/12/24 10:00 Atorvastatin Calcium 20 mg HS PO 10/12/24 22:00 Lisinopril 5 mg DAILY PO 10/12/24 10:00 Metoprolol Tartrate 50 mg BID PO 10/12/24 10:00 Rivaroxaban 15 mg QPM PO 10/12/24 18:00 Ondansetron HCl 4 mg Q4HP PRN IV 10/11/24 22:30 Acetaminophen 650 mg Q6HP PRN PO 10/11/24 22:30 Exam Vital Signs Vital Signs Date Time Temp Pulse Resp B/P (MAP) Pulse Ox O2 Delivery O2 Flow Rate FiO2 10/12/24 00:00 60 10/11/24 23:22 98.2 19 118/68 (85) 100 98.2 10/11/24 19:59 Room Air* 0 21 Exam Gen: 79-year-old male in mild distress Skin: Warm, dry, normal color and texture, no rash. HEENT: Normocephalic atraumatic, mucous membranes moist and pink. Neck: Cervical and supraclavicular nodes normal without enlargement, trachea is midline, thyroid gland is normal without masses. Pulmonary: Clear to auscultation and percussion bilaterally. Cardiac: Regular rate and rhythm. No murmur Abdomen: Soft, nontender, nondistended, bowel sounds present all 4 quadrants, no guarding, no rigidity, no organomegaly. Extremities: No cyanosis, clubbing, no edema Neuro: Cranial nerves II through XII grossly intact, normal affect and speech, RUE 4/5, LUE 5/5, RLE/LLE 5/5 Labs/Xrays ORDERING PHYSICIAN: DEVIN DEE DNP PROCEDURE(s): MBHL - BRAIN HEAD WO CONTRAST REASON: TIA ORDER NUMBER(s): [id number], ACCESSION NUMBER(s): [id number] PROCEDURE: MRI BRAIN HEAD WO CONTRAST INDICATION: TIA EXAM DATE: 10/11/2024 04:03 PM COMPARISON: None TECHNIQUE: MRI of the brain without intravenous contrast. FINDINGS: Small focus of restricted diffusion in the left peralta radiata with associated FLAIR signal abnormality consistent with an acute / subacute infarct. There is no evidence of acute intracranial hemorrhage, extra-axial collection, mass effect, midline shift, herniation or hydrocephalus. The ventricles, sulci and cisterns appear age appropriate. There are no signal abnormalities on the susceptibility weighted sequences. The major vascular flow voids are present. Air-fluid level in the right maxillary sinus. The surrounding soft tissues and osseous structures are unremarkable. IMPRESSION: 1. Acute/subacute infarct in the left peralta radiata. Clinical correlation and continued follow-up is recommended. Right maxillary sinus disease. Critical Result: Stroke Alert Findings discussed with medical assist Madelin at 10/11/2024 04:38 PM, and acknowledged receipt and understanding of the findings. She reported patient had been sent to the emergency department for further management. HS:Y RING PHYSICIAN: NONA KHAN MD PROCEDURE(s): CARCL - CAROTID DUPLX W COLOR DOP REASON: CVA ORDER NUMBER(s): [id number], ACCESSION NUMBER(s): [id number] US CAROTID DOPPLER CLINICAL INDICATION: CVA hyperlipidemia, high blood pressure, history of smoking TECHNIQUE: Multiple grayscale, color Doppler and spectral Doppler ultrasound images were obtained throughout both carotid systems. COMPARISON: CAROTID DUPLX W COLOR DOP on DOS: 07/07/21 FINDINGS: RIGHT: CCA PSV: 67 cm/s ECA PSV: 72 cm/s ICA PSV: 82 cm/s ICA EDV: 31 cm/s ICA/CCA Ratio: Less than 2 Vertebral artery: Patent, antegrade flow. Grayscale images demonstrate mild calcified plaque at the carotid bifurcation. No visible stenosis. Spectral analysis demonstrates no hemodynamically sign ificant CCA or ICA stenosis. LEFT: CCA PSV: 59 cm/s ECA PSV: 64 cm/s ICA PSV: 97 cm/s ICA EDV: 34 cm/s ICA/CCA Ratio: Less than 2 Vertebral artery: Patent, antegrade flow. Grayscale images demonstrate mild calcified plaque of the carotid bifurcation and proximal ICA. No visible stenosis. Spectral analysis demonstrates no hemodynamically significant CCA or ICA stenosis. IMPRESSION: No evidence of hemodynamically significant CCA or ICA stenosis. ATED BY: JENNIFER CHAPARRO MD DICTATED DATE/TIME: 10/11/24 2219 Labs Test 10/11/24 21:50 10/11/24 19:56 10/11/24 18:35 10/11/24 18:20 Range/Units Troponin I High Sensitivity 3 L </=54 ng/L Triglycerides Level 193 H < 150 mg/dL Cholesterol Level 130 < 200 mg/dL LDL Cholesterol 74 < 100 mg/dL HDL Cholesterol 33 L 40-59 mg/dL White Blood Count 6.9 4.4-10.8 10^3/uL Red Blood Count 4.26 L 4.5-5.90 10^6/uL Hemoglobin 13.5 13.5-17.5 g/dL Hematocrit 40.5 L 41.0-53.0 % Mean Corpuscular Volume 94.9 80.0-100.0 fL Mean Corpuscular Hemoglobin 31.8 28.0-32.0 pg Mean Corpuscular Hemoglobin Concent 33.5 32.0-36.0 g/dL Red Cell Distribution Width 13.2 11.8-14.3 % Platelet Count 273 140-450 10^3/uL Mean Platelet Volume 7.2 6.9-10.8 fL Neutrophils (%) (Auto) 53.5 37.0-80.0 % Lymphocytes (%) (Auto) 31.4 10.0-50.0 % Monocytes (%) (Auto) 7.6 0.0-12.0 % Eosinophils (%) (Auto) 6.4 0.0-7.0 % Basophils (%) (Auto) 1.1 0.0-2.0 % Neutrophils # (Auto) 3.7 1.6-8.6 10 ^3/uL Lymphocytes # (Auto) 2.2 0.4-5.4 10 ^3/uL Monocytes # (Auto) 0.5 0-1.3 10 ^3/uL Eosinophils # (Auto) 0.4 0-0.8 10 ^3/uL Basophils # (Auto) 0.1 0-0.2 10 ^3/uL Nucleated Red Blood Cells 0.2 % Prothrombin Time 11.9 H 9.3-11.8 sec Prothrombin Time INR 1.14 0.9-1.15 Sodium Level 136 136-145 mmol/L Potassium Level 4.7 3.5-5.1 mmol/L Chloride Level 104 98-107 mmol/L Carbon Dioxide Level 24 20-31 mmol/L Anion Gap 8 5-15 Blood Urea Nitrogen 18 9-23 mg/dL Creatinine 1.32 H 0.700-1.30 mg/dL Glomerular Filtration Rate Calc 55 >90 mL/min BUN/Creatinine Ratio 13.6 10.0-20.0 Serum Glucose 92 74-106 mg/dL Lactic Acid Level 1.1 0.4-2.0 mmol/L Calcium Level 10.1 8.7-10.4 mg/dL Total Bilirubin 0.2 0.2-1.0 mg/dL Aspartate Amino Transferase (AST) 24 13-40 U/L Alanine Aminotransferase (ALT) 20 7-40 U/L Alkaline Phosphatase 85 46-116 U/L Total Protein 6.8 5.7-8.2 g/dL Albumin 4.3 3.2-4.8 g/dL Lipase 30 12-53 U/L Urine Color Colorless Yellow Urine Clarity Clear Clear Urine pH 5.5 5.0-9.0 Urine Specific Raymond 1.007 1.001-1.035 Urine Protein Negative Negative Urine Ketones Negative Negative Urine Blood Negative Negative /uL Urine Nitrite Negative Negative Urine Bilirubin Negative Negative Urine Urobilinogen Normal Negative mg/dL Urine Leukocyte Esterase Negative Negative /uL Urine RBC <1 0 - 3 /hpf Urine Microscopic WBC < 1 0-3 /HPF Urine Squamous Epithelial Cells None seen <5 /hpf Urine Bacteria None seen None Seen /hpf Urine Glucose Normal Normal mg/dL Test 10/11/24 17:22 Range/Units POC Glucose 101 70-106 mg/dl Assessment/Plan Assessment/Plan Assessment CVA, nonhemorrhagic Hypertension Plan Admit the patient to [facility] to the hospitalist Nephrology consultation Resume home medications Continue treatment per orders. Plan discussed with: Patient My Orders Orders - BASHIR BAUTISTA Procedure Category Date Status Time Amiodarone Tablet PHA 10/12/24 In Process (Cordarone Tablet) 10:00 Atorvastatin (Lipitor) PHA 10/12/24 In Process 22:00 Lisinopril Tablet PHA 10/12/24 In Process (Zestril Tablet) 10:00 Metoprolol Tartrate PHA 10/12/24 In Process Tablet (Lopressor Ta 10:00 Rivaroxaban Tablet PHA 10/12/24 In Process (Xarelto Tablet) 18:00 Basic Metabolic Panel LAB 10/12/24 Logged 04:00 Admit ADMIT 10/11/24 Transmitted 22:21 Ondansetron Hcl PHA 10/11/24 In Process (Zofran) 22:30 Cardiac DIET 10/12/24 Transmitted Diet-2gna,Lofat,Lochol Breakfast Condition: Stable CITLALY 10/11/24 In Process 22:21 Acetaminophen Tablet PHA 10/11/24 In Process (Tylenol Tablet) 22:30 Bedrest With Bathroom CITLALY 10/11/24 In Process Privileg 22:21 Date of Service: Oct 11, 2024 Billing Provider: BASHIR BAUTISTA Common Visit Codes: [id number] INP/OBS CARE (HIGH) BASHIR BAUTISTA Oct 12, 2024 01:10
[2024-10-12 02:47] VITALS: BP 128/66; PULSE 60; RESP 15; TEMP 97.4; O2SAT 95
[2024-10-12] MEDS ORDERED: DIGO0.12 PO (03:45)
[2024-10-12] MEDS ORDERED: FLUT50AE5 IN (03:45)
[2024-10-12] MEDS ORDERED: CHOL20007 PO (03:45)
[2024-10-12 04:13] LABS: Benzodiazephine Screen, Urine Pos (NEGATIVE); Opiate Scree,Urine Neg (NEGATIVE)
[2024-10-12 04:19] LABS: Amphetamine Screen, Urine Neg (NEGATIVE); Barbiturate Scree,Urine Neg (NEGATIVE); Cannabinoid Screen, Urine Neg (NEGATIVE); Cocaine Screen, Urine Neg (NEGATIVE); Phencyclidine Screen, Urine Neg (NEGATIVE)
[2024-10-12] MEDS: HYDROcodone-ACET 5/325MG TAB PO ONE (04:37)
[2024-10-12 06:46] LABS: Calcium 10.1 mg/dL (8.7-10.4); Chloride 103 mmol/L (98-107); Potassium 4.1 mmol/L (3.5-5.1); Sodium 138 mmol/L (136-145)
[2024-10-12 06:47] LABS: Anion Gap 8 (5-15); Carbon Dioxide 27 mmol/L (20-31)
[2024-10-12 06:52] LABS: Blood Urea Nitrogen 15 mg/dL (9-23); Glucose 85 mg/dL (74-106)
[2024-10-12 08:00] VITALS: PULSE 71; RESP 18
[2024-10-12 09:00] VITALS: BP 116/57; PULSE 71; RESP 16; TEMP 97.4; O2SAT 95
[2024-10-12] MEDS: LISINOPRIL 5 MG TAB PO SCH (10:00)
[2024-10-12] MEDS: METOPROLOL TARTRATE 50 MG TAB PO SCH (10:00)
[2024-10-12] MEDS: AMIODARONE HCL 200 MG TAB PO SCH (11:16)
[2024-10-12] MEDS: CLOPIDOGREL BISULFATE 75 MG TAB PO SCH (11:16)
[2024-10-12] MEDS ORDERED: ASPI-325 PO (12:37)
[2024-10-12] MEDS ORDERED: CLOP75TA70 PO (12:37)
[2024-10-12] MEDS ORDERED: ceFAZolin 2 GM/D5W50ml 0 ML IV ONE (12:53)
[2024-10-12 13:00] VITALS: BP 125/65; PULSE 67; RESP 16; TEMP 97.4; O2SAT 99
--- NOTE | 2024-10-12 15:05 | ECG ---
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
--- NOTE | 2024-10-12 15:26 | DVHPN2 ---
Progress Note - Dictate Date Seen: Oct 12, 2024 Medical Necessity Reason Pt with a Central, PICC or Fol: No Subjective Mr. Robles is a 79 years old right-handed gentleman with a history of hypertension, coronary artery disease, abdominal aorta aneurysm, chronic kidney failure, diverticulosis, PTSD, overweight, he was advised to come to the ER for stroke I have seen and examined the patient was, I have discussed with his nurse, he was alert and oriented x4, he told me he has AFib and is on Xarelto 10 mg daily, he was takes Lipitor 20 mg daily He was reports no new problems He had echocardiogram, reports pending UDS, 10/11/24: Benzo CBC, 10/11/2024: Unremarkable BUN/CR, 10/11/2024: 18/1.32 GFR, 10/11/2024: 55 Liver function tests, 10/11/2024: Normal TG/HDL/LDL/HDL, 10/11/2024: 193/130/74/33 Carotid Doppler, 10/11/2024: No evidence of hemodynamically significant CCA or ICA stenosis. MRI headache, 10/11/2024: Acute/subacute infarct in the left peralta radiata. Clinical correlation and continued follow-up is recommended. Right maxillary sinus disease. vital signs Vital Sign Date Time Temp Pulse Resp B/P (MAP) Pulse Ox O2 Delivery O2 Flow Rate FiO2 10/12/24 13:00 97.4 67 16 125/65 (85) 99 97.4 10/12/24 03:00 Room Air* 0 21 Total Intake and Output 10/11/24 10/11/24 10/12/24 15:00 23:00 07:00 Intake Total 0 ml Output Total 0 ml Balance 0 ml medications Current Medications Medications Dose Ordered Sig/Lou Route Start Time Stop Time Status Last Admin Dose Admin Aspirin 81 mg DAILY PO 10/11/24 23:00 10/12/24 11:17 81 MG Clopidogrel Bisulfate 75 mg DAILY PO 10/12/24 10:00 10/31/24 23:00 10/12/24 11:16 75 MG Amiodarone HCl 200 mg DAILY PO 10/12/24 10:00 10/12/24 11:16 200 MG Atorvastatin Calcium 20 mg HS PO 10/12/24 22:00 Lisinopril 5 mg DAILY PO 10/12/24 10:00 Metoprolol Tartrate 50 mg BID PO 10/12/24 10:00 Rivaroxaban 15 mg QPM PO 10/12/24 18:00 Ondansetron HCl 4 mg Q4HP PRN IV 10/11/24 22:30 Acetaminophen 650 mg Q6HP PRN PO 10/11/24 22:30 Pantoprazole Sodium 40 mg DAILY@0600 PO 10/13/24 06:00 objective General: the patient is well developed and nourished. No acute distress. MENTAL STATUS: Subjective SPEECH, LANGUAGE, HIGHER CORTICAL FUNCTION: no aphasia or dysathria. CRANIAL NERVES: Pupils are equal, round and reactive. EOMs full and conjugate. No nystagmus. Facial sensation intact in all three divisions bilaterally. Mandibular strength intact. Facial muscles symmetrical and strength intact. SENSATION: Sensation to touch and pinprick is normal. MOTOR: Normal tone in the upper and lower extremity. Normal muscle bulk. No fasciculations. No abnormal movements or posturing. Muscle strength of the major groups in the upper extremities is 4-5/5 weaker in the right arm. He was can move both legs REFLEXES: Deep tendon reflexes are symmetrical. No pathological reflexes. CEREBELLAR/COORDINATION: Deferred GAIT/STATION: deferred. laboratory and microbiology Laboratory Tests 10/12/24 05:39 10/11/24 18:35 Test 10/12/24 05:39 Range/Units Serum Glucose 85 74-106 mg/dL Problem List Acute left upper extremity weakness paresthesia secondary to acute stroke Acute stroke AFib Assessment/Plan Monitoring Supportive treatment Telemetry Echocardiogram D/C Aspirin 81 mg daily Lipitor 40 mg daily D/C Plavix 75 mg daily for 21 days Xarelto 15 mg q.d. (hospitalist) Physical therapy He has been advised not to take aspirin and/or Plavix He has been advised to continue his Xarelto More recommendation per clinical course This medical document was created using an electronic medical record system with [employer] dictation system. Although this document has been carefully reviewed, there may still be some phonetic and typographical errors. These areas are purely typographical due to imperfections of the software programs, and do not reflect any compromise in the patient's medical care. Prognosis poor Plan discussed with: Patient, Other NONA POWERS MD Oct 12, 2024 15:26
--- NOTE | 2024-10-12 16:29 | DVHDSRES ---
Discharge Summary Date of Admission Resident Creating Document: SANAM HINES RESIDENT Oct 11, 2024 at 22:21 Date of Discharge: Oct 12, 2024 Admitting Diagnosis CVA Labs/Diagnostic Data: Laboratory Results Test 10/12/24 05:39 10/11/24 21:50 10/11/24 19:56 10/11/24 18:35 Sodium Level 138 mmol/L (136-145) Potassium Level 4.1 mmol/L (3.5-5.1) Chloride Level 103 mmol/L (98-107) Carbon Dioxide Level 27 mmol/L (20-31) Anion Gap 8 (5-15) Blood Urea Nitrogen 15 mg/dL (9-23) Creatinine 1.36 mg/dL (0.700-1.30) Glomerular Filtration Rate Calc 53 mL/min (>90) BUN/Creatinine Ratio 11.0 (10.0-20.0) Serum Glucose 85 mg/dL (74-106) Calcium Level 10.1 mg/dL (8.7-10.4) Troponin I High Sensitivity 3 ng/L (</=54) Triglycerides Level 193 mg/dL (< 150) Cholesterol Level 130 mg/dL (< 200) LDL Cholesterol 74 mg/dL (< 100) HDL Cholesterol 33 mg/dL (40-59) White Blood Count 6.9 10^3/uL (4.4-10.8) Red Blood Count 4.26 10^6/uL (4.5-5.90) Hemoglobin 13.5 g/dL (13.5-17.5) Hematocrit 40.5 % (41.0-53.0) Mean Corpuscular Volume 94.9 fL (80.0-100.0) Mean Corpuscular Hemoglobin 31.8 pg (28.0-32.0) Mean Corpuscular Hemoglobin Concent 33.5 g/dL (32.0-36.0) Red Cell Distribution Width 13.2 % (11.8-14.3) Platelet Count 273 10^3/uL (140-450) Mean Platelet Volume 7.2 fL (6.9-10.8) Neutrophils (%) (Auto) 53.5 % (37.0-80.0) Lymphocytes (%) (Auto) 31.4 % (10.0-50.0) Monocytes (%) (Auto) 7.6 % (0.0-12.0) Eosinophils (%) (Auto) 6.4 % (0.0-7.0) Basophils (%) (Auto) 1.1 % (0.0-2.0) Neutrophils # (Auto) 3.7 10 ^3/uL (1.6-8.6) Lymphocytes # (Auto) 2.2 10 ^3/uL (0.4-5.4) Monocytes # (Auto) 0.5 10 ^3/uL (0-1.3) Eosinophils # (Auto) 0.4 10 ^3/uL (0-0.8) Basophils # (Auto) 0.1 10 ^3/uL (0-0.2) Nucleated Red Blood Cells 0.2 % Prothrombin Time 11.9 sec (9.3-11.8) Prothrombin Time INR 1.14 (0.9-1.15) Lactic Acid Level 1.1 mmol/L (0.4-2.0) Total Bilirubin 0.2 mg/dL (0.2-1.0) Aspartate Amino Transferase (AST) 24 U/L (13-40) Alanine Aminotransferase (ALT) 20 U/L (7-40) Alkaline Phosphatase 85 U/L (46-116) Total Protein 6.8 g/dL (5.7-8.2) Albumin 4.3 g/dL (3.2-4.8) Lipase 30 U/L (12-53) Test 10/11/24 18:20 10/11/24 17:22 Urine Color Colorless (Yellow) Urine Clarity Clear (Clear) Urine pH 5.5 (5.0-9.0) Urine Specific [place] 1.007 (1.001-1.035) Urine Protein Negative (Negative) Urine Ketones Negative (Negative) Urine Blood Negative /uL (Negative) Urine Nitrite Negative (Negative) Urine Bilirubin Negative (Negative) Urine Urobilinogen Normal mg/dL (Negative) Urine Leukocyte Esterase Negative /uL (Negative) Urine RBC <1 /hpf (0 - 3) Urine Microscopic WBC < 1 /HPF (0-3) Urine Squamous Epithelial Cells None seen /hpf (<5) Urine Bacteria None seen /hpf (None Seen) Urine Glucose Normal mg/dL (Normal) Urine Opiates Screen Neg (NEGATIVE) Urine Fentanyl Screen Neg (NEGATIVE) Urine Barbiturates Screen Neg (NEGATIVE) Urine Phencyclidine Screen Neg (NEGATIVE) Urine Amphetamines Screen Neg (NEGATIVE) Urine Benzodiazepines Screen Pos (NEGATIVE) Urine Cocaine Screen Neg (NEGATIVE) Urine Cannabinoids Screen Neg (NEGATIVE) POC Glucose 101 mg/dl (70-106) Other Laboratory Tests 10/12/24 05:39 10/11/24 18:35 Brief Hx & Hospital Course: Patient is 79-year-old male with past medical history of coronary artery disease, hypertension, CKD, surgical history of pacemaker with PTCA who presented to hospital with a chief complaint of right-sided weakness. Patient had similar weakness since 10 days and patient was scheduled for stat MRI which came positive for acute versus subacute stroke, patient was given aspirin, Plavix, atorvastatin. Neurology consultation was done. Advised to continue home medication Xarelto. Patient has right-sided weakness significantly improving since last 10 days, as per patient he regained function almost of 90% of what effect, agreed with discharge plan and patient will follow with primary care physician. Patient advised to come to the hospital if similar symptoms recurs or worsens. Condition at Discharge: Stable Final Diagnosis/Problems List Acute right upper extremity weakness paresthesia secondary to acute stroke Acute stroke AFib on xeralto h/0 Coronary artery disease Hypertension Discharge Disposition: Home Discharge Instruct/Medications Diet: Cardiac 2g Na,low cholest Activity: No Restrictions, As Tolerated Follow Up/Referral: -Follow up with PCP in 2 weeks Medications: see presciption Discharge Statement: "Patient was advised to return to the ER or call 911 if any headaches, dizziness, shortness of breath, chest pain, abdominal pain, bleeding, fevers, or worsening of medical condition. Patient was counseled about treatment plan, medications, possible side effects, patientverbalized understanding. All questions were answered to the best of my ability. This discharge took greater then 30 minutes in planning, reviewing documentation, counseling the patient, and discussing with other team members." ASSESSMENT ASSESSMENT Assessment Acute CVA Date of Service: Oct 12, 2024 Billing Provider: BERNICE HARRIS MD Common Visit Codes: 75164-YGS/OBS DISCH DAY >30min SANAM HINES RESIDENT Oct 12, 2024 16:29 BERNICE HARRIS MD Oct 12, 2024 19:53
[2024-10-12 16:59] VITALS: BP 114/63; PULSE 70; RESP 18; TEMP 97.7; O2SAT 98
[2024-10-12] MEDS: PANTOPRAZOLE 40 MG TAB PO ONE (18:25)
[2024-10-12] MEDS: RIVAROXABAN 15 MG TAB PO SCH (18:25)
[2024-10-12] MEDS ORDERED: ATORVASTATIN 20 MG TAB PO SCH (22:00)
[2024-10-13] MEDS ORDERED: PANTOPRAZOLE 40 MG TAB PO SCH (06:00)
== END 2024-10-12 18:47 | disposition home or self-care (01) | DRG 65 ==
LOC: ER 17:03 → OVERFLOW 22:21 → EAST 10-12 02:47
PROVIDERS: ADMIT Internal Medicine; ATTEND Internal Medicine
DX: I63.9 Cerebral infarction, unspecified (principal); G81.91 Hemiplegia, unspecified affecting right dominant side; I12.9 Hypertensive chronic kidney disease with stage 1 through stage 4 chronic kidney disease, or unspecified chronic kidney disease; N18.9 Chronic kidney disease, unspecified; I25.10 Atherosclerotic heart disease of native coronary artery without angina pectoris; I48.91 Unspecified atrial fibrillation; Z91.040 Latex allergy status; Z91.048 Other nonmedicinal substance allergy status; Z79.2 Long term (current) use of antibiotics; Z79.01 Long term (current) use of anticoagulants; Z79.899 Other long term (current) drug therapy; Z79.82 Long term (current) use of aspirin; Z82.49 Family history of ischemic heart disease and other diseases of the circulatory system
CPT/HCPCS: 36415; 80048; 80053; 80061; 80307; 81001; 82962; 83605; 83690; 84484; 85025; 85610; 93005; 93306; 93886; 97163; 99291; G0378

== ENCOUNTER → 2024-10-26 | Outpatient (CLI) | payer OTHER ==
[~2024-10-26] MED LIST changes: -CETI10CA PO; +CHOL20007 PO; -CIP500T GT; +DIGO0.12 PO; +FLUT50AE5 IN; -METR-344 PO
[2024-10-26 15:51] LABS: Urine Bacteria None Seen /hpf (None Seen)
[2024-10-26 15:57] LABS: Basophils # (auto) 0.1 10 ^3/uL (0-0.2); Basophils % (auto) 0.8 % (0.0-2.0); Eosinophils # (auto) 0.4 10 ^3/uL (0-0.8); Hematocrit 39.7 % (41.0-53.0); Hemoglobin 13.4 g/dL (13.5-17.5); Lymphocytes # (auto) 2.2 10 ^3/uL (0.4-5.4); Lymphocytes % (auto) 29.8 % (10.0-50.0); Mean Corpuscular Hemoglobin 31.9 pg (28.0-32.0); Mean Corpuscular Hgb Conc. 33.9 g/dL (32.0-36.0); Mean Corpuscular Volume 94.2 fL (80.0-100.0); Monocytes # (auto) 0.6 10 ^3/uL (0-1.3); Monocytes % (auto) 8.1 % (0.0-12.0); Neutrophils # (auto) 4.1 10 ^3/uL (1.6-8.6); Neutrophils % (auto) 56.3 % (37.0-80.0); Platelet Count (auto) 248 10^3/uL (140-450); Red Blood Cells 4.21 10^6/uL (4.5-5.90); Red Cell Distribution Width 13.5 % (11.8-14.3); White Blood Cell 7.3 10^3/uL (4.4-10.8)
[2024-10-26 15:59] LABS: Urine Blood Negative /uL (Negative); Urine Clarity Clear (Clear); Urine Color Yellow (Yellow); Urine Mucus FEW (None Seen); Urine Protein, UAD TRACE (Negative); Urine Specific Gravity 1.027 (1.001-1.035); Urine Squamous Epithelial Cell FEW /hpf (<5); Urine Urobilinogen Normal (Negative); Urine WBC 1 /HPF (0-3); Urine pH 5.5 (5.0-9.0)
[2024-10-26 17:03] LABS: Alanine Aminotransferase 18 U/L (7-40); Albumin 4.5 g/dL (3.2-4.8); Alkaline Phosphatase 84 U/L (46-116); Anion Gap 9 (5-15); Aspartate Aminotransferase 22 U/L (13-40); BUN/Creatinine Ratio 14.1 (10.0-20.0); Bilirubin, Total 0.3 mg/dL (0.2-1.0); Blood Urea Nitrogen 19 mg/dL (9-23); Calcium 10.1 mg/dL (8.7-10.4); Carbon Dioxide 26 mmol/L (20-31); Chloride 106 mmol/L (98-107); Sodium 141 mmol/L (136-145); Total Protein 7.2 g/dL (5.7-8.2)
[2024-10-26 17:04] LABS: Glucose 71 mg/dL (74-106); Potassium 5.1 mmol/L (3.5-5.1)
== END | disposition home or self-care (01) ==
LOC: LAB 15:19
PROVIDERS: ATTEND Internal Medicine
DX: E11.22 Type 2 diabetes mellitus with diabetic chronic kidney disease (principal); N18.30 Chronic kidney disease, stage 3 unspecified; E11.21 Type 2 diabetes mellitus with diabetic nephropathy; E21.3 Hyperparathyroidism, unspecified; E55.9 Vitamin D deficiency, unspecified; M10.9 Gout, unspecified; N39.0 Urinary tract infection, site not specified; R80.9 Proteinuria, unspecified; D63.1 Anemia in chronic kidney disease
CPT/HCPCS: 36415; 80053; 81001; 82306; 83970; 85025

== ENCOUNTER 2025-03-18 08:21 | Outpatient (CLI) | payer OTHER ==
[2025-03-18 08:44] LABS: Urine Protein, UAD TRACE (Negative)
[2025-03-18 08:46] LABS: Hematocrit 39.1 % (41.0-53.0); Hemoglobin 13.5 g/dL (13.5-17.5); Mean Corpuscular Hemoglobin 32.4 pg (28.0-32.0); Mean Corpuscular Volume 94.3 fL (80.0-100.0); Nucleated Red Blood Cells % 0.1 %
[2025-03-18 09:12] LABS: Alanine Aminotransferase 17 U/L (7-40); Albumin 4.3 g/dL (3.2-4.8); Alkaline Phosphatase 84 U/L (46-116); Anion Gap 10 (5-15); BUN/Creatinine Ratio 10.3 (10.0-20.0); Blood Urea Nitrogen 15 mg/dL (9-23); Calcium 9.1 mg/dL (8.7-10.4); Carbon Dioxide 27 mmol/L (20-31); Chloride 105 mmol/L (98-107); Cholesterol 142 mg/dL (< 200); Glucose 95 mg/dL (74-106); Potassium 4.1 mmol/L (3.5-5.1); Sodium 142 mmol/L (136-145); Total Protein 7.0 g/dL (5.7-8.2); Triglycerides 82 mg/dL (< 150)
[2025-03-18 09:13] LABS: Bilirubin, Total 0.4 mg/dL (0.2-1.0)
[2025-03-18 09:14] LABS: HDL Cholesterol 37 mg/dL (40-59)
== END 2025-03-18 17:00 | disposition home or self-care (01) ==
LOC: LAB 08:21
PROVIDERS: ATTEND Nurse Practitioner
DX: I10 Essential (primary) hypertension (principal); E78.5 Hyperlipidemia, unspecified; R73.9 Hyperglycemia, unspecified
CPT/HCPCS: 36415; 80053; 80061; 81001; 83036; 84443; 85025

== ENCOUNTER → 2025-04-10 | Outpatient (CLI) | payer OTHER ==
--- NOTE | 2025-04-11 08:33 | DVHSR ---
APPROVED REPORT EXAM: Two-dimensional and M-mode echocardiogram with Doppler and color Doppler. DIMENSIONS LVDd3.9 (3.8-5.7cm)LA (2D)4.2 (1.9-4.0cm)Aortic Root3.8 (2.0-3.7cm) LVDs3.3 (2.5-4.0cm)LA (MM) (1.9-4.0cm)Aortic Cusp Exc1.9 (1.5-2.0cm) EF (%) 31.0 (55-70%)Rt. Atrium3.4 (1.9-4.0cm)Asc. Aorta4.0 cm IVSd1.2 (0.7-1.1cm)RV (D)4.0 (1.8-2.4cm) PWd1.3 (0.7-1.1cm) Mitral Valve MitralMitral Stenosis E wave0.26m/sMV Mean GR.mmHg A wave0.74m/sMV Peak GR.mmHg E/A ratio0.42D MVAcm2 DECEL [id number] 1/2 Tim[place] Aortic Valve Aortic ValveAortic Stenosis V10.61m/Ziggy Mean GR.2mmHg V20.83m/Ziggy Peak GR.3mmHg LVOT Diameter2.7 (1.8-2.4cm)Doppler AVA4.21cm2 Pulmonic Valve V20.87m/s Tricuspid Valve TR Velocity2.07m/s [id number] LEFT VENTRICLE The left ventricle is normal size. The Ejection Fraction is 30% There is global hypokinesis of the left ventricle. RIGHT VENTRICLE The right ventricle is normal size. ATRIA The left atrium is mildly dilated. The right atrium is mildly dilated. The atrial septum is aneurysmal. MITRAL VALVE The mitral valve is normal in structure and function. There is no mitral valve regurgitation noted. PULMONIC VALVE The pulmonic valve is not well visualized. There is mild pulmonic valvular regurgitation. TRICUSPID VALVE The tricuspid valve is grossly normal. There is mild tricuspid regurgitation. AORTIC VALVE The aortic valve opens well. No aortic regurgitation is present. GREAT VESSELS The aortic root is normal size. PERICARDIAL EFFUSION There is no pericardial effusion. Other Information Technically limited study due to body habitus. Conclusion SEGMENTAL WALL MOTION ABNL EF <30% MILD PI MILD TR PACEMAKER LEAD SEEN LAE LVH
== END | disposition home or self-care (01) ==
LOC: Rad HDHVI 08:44
PROVIDERS: ATTEND Internal Medicine Cardiovascular Disease
DX: I08.8 Other rheumatic multiple valve diseases (principal); I11.9 Hypertensive heart disease without heart failure; Z95.0 Presence of cardiac pacemaker
CPT/HCPCS: 93306

== ENCOUNTER 2025-04-12 08:25 | Outpatient (CLI) | payer OTHER ==
[~2025-04-12] VITALS: Ht 182.9 cm; Wt 86.2 kg
[2025-04-12] MEDS ORDERED: ADENOSINE 90 MG/30 ML INJ IV ONE (08:53)
[2025-04-12] MEDS ORDERED: ADENOSINE 72 MG in GIVE UN-DILUTED 0 ML IV ONE (10:45)
== END 2025-04-12 17:00 | disposition home or self-care (01) ==
LOC: Rad HDHVI 08:25
PROVIDERS: ATTEND Internal Medicine Cardiovascular Disease
DX: I11.0 Hypertensive heart disease with heart failure (principal); I50.42 Chronic combined systolic (congestive) and diastolic (congestive) heart failure; I71.00 Dissection of unspecified site of aorta; I48.91 Unspecified atrial fibrillation; I70.0 Atherosclerosis of aorta; I25.10 Atherosclerotic heart disease of native coronary artery without angina pectoris; R06.02 Shortness of breath; R00.2 Palpitations; E78.5 Hyperlipidemia, unspecified; Z82.49 Family history of ischemic heart disease and other diseases of the circulatory system; Z86.73 Personal history of transient ischemic attack (TIA), and cerebral infarction without residual deficits
CPT/HCPCS: 78452; 93017; A9500; J0153

== ENCOUNTER 2025-04-17 11:18 | Outpatient (CLI) | payer OTHER ==
[2025-04-17 11:36] LABS: Hematocrit 39.1 % (41.0-53.0); Hemoglobin 13.1 g/dL (13.5-17.5); Mean Corpuscular Hemoglobin 31.9 pg (28.0-32.0); Mean Corpuscular Volume 95.1 fL (80.0-100.0); Nucleated Red Blood Cells % 0.0 %
[2025-04-17 11:52] LABS: Urine Protein, UAD Negative (Negative)
[2025-04-17 12:24] LABS: Alanine Aminotransferase 19 U/L (7-40); Albumin 4.2 g/dL (3.2-4.8); Alkaline Phosphatase 84 U/L (46-116); Anion Gap 8 (5-15); BUN/Creatinine Ratio 9.6 (10.0-20.0); Blood Urea Nitrogen 15 mg/dL (9-23); Calcium 8.8 mg/dL (8.7-10.4); Carbon Dioxide 27 mmol/L (20-31); Chloride 105 mmol/L (98-107); Sodium 140 mmol/L (136-145); Total Protein 7.0 g/dL (5.7-8.2)
[2025-04-17 12:25] LABS: Bilirubin, Total 0.3 mg/dL (0.2-1.0)
[2025-04-17 12:31] LABS: Glucose 111 mg/dL (74-106); Potassium 5.2 mmol/L (3.5-5.1)
[2025-04-17 13:13] LABS: Microalb/Creat Ratio, Urine < 3.0
== END 2025-04-19 17:00 | disposition home or self-care (01) ==
LOC: LAB 11:18
PROVIDERS: ATTEND Internal Medicine
DX: E11.22 Type 2 diabetes mellitus with diabetic chronic kidney disease (principal); N18.30 Chronic kidney disease, stage 3 unspecified; E11.21 Type 2 diabetes mellitus with diabetic nephropathy; N39.0 Urinary tract infection, site not specified; R80.9 Proteinuria, unspecified; E21.3 Hyperparathyroidism, unspecified; M10.9 Gout, unspecified; E55.9 Vitamin D deficiency, unspecified; D63.1 Anemia in chronic kidney disease
CPT/HCPCS: 36415; 80053; 81001; 82043; 82306; 82570; 83970; 85025

== ENCOUNTER 2025-05-27 10:34 | Outpatient (CLI) | payer OTHER ==
[2025-05-27 12:17] LABS: Chloride 104 mmol/L (98-107); Sodium 139 mmol/L (136-145)
[2025-05-27 12:18] LABS: Anion Gap 8 (5-15); Calcium 9.8 mg/dL (8.7-10.4); Carbon Dioxide 27 mmol/L (20-31)
[2025-05-27 12:21] LABS: Potassium 5.3 mmol/L (3.5-5.1)
[2025-05-27 12:23] LABS: BUN/Creatinine Ratio 16.6 (10.0-20.0); Glucose 93 mg/dL (74-106)
[2025-05-27 12:27] LABS: Blood Urea Nitrogen 27 mg/dL (9-23)
== END 2025-05-27 17:00 | disposition home or self-care (01) ==
LOC: LAB 10:34
PROVIDERS: ATTEND Internal Medicine Cardiovascular Disease
DX: I13.0 Hypertensive heart and chronic kidney disease with heart failure and stage 1 through stage 4 chronic kidney disease, or unspecified chronic kidney disease (principal); E11.22 Type 2 diabetes mellitus with diabetic chronic kidney disease; I50.23 Acute on chronic systolic (congestive) heart failure; N18.30 Chronic kidney disease, stage 3 unspecified; E11.21 Type 2 diabetes mellitus with diabetic nephropathy; E29.1 Testicular hypofunction; E21.3 Hyperparathyroidism, unspecified; E55.9 Vitamin D deficiency, unspecified; D63.1 Anemia in chronic kidney disease; N39.0 Urinary tract infection, site not specified; M10.9 Gout, unspecified; R80.9 Proteinuria, unspecified
CPT/HCPCS: 36415; 80048; 83880; 84403

== ENCOUNTER → 2025-06-10 | Outpatient (CLI) | payer OTHER | END | disposition home or self-care (01) | LOC: LAB 12:27 | PROVIDERS: ATTEND Dermatology | DX: Z01.812 Encounter for preprocedural laboratory examination (principal) ==